=== PATIENT | female | born 1960 | race Caucasian/White ===

== ENCOUNTER 2016-08-31 15:32 | Inpatient (IN) | payer OTHER, MEDICARE ==
[~2016-08-31] VITALS: Ht 170.2 cm; Wt 120.2 kg
[~2016-08-31 15:32] MED LIST: A/B OTIC 54 MG/15 ML OTIC; ACCUNEB 3 ML3 M1 INH; ADVAIR DISKUS1 UNIT INH; ALBUTEROL 3 ML3 ML INH; ALBUTEROL1.25 MG/3 INH/SOL; AMOXIL 875 MG875 MG PO; AUGMENTIN 875 M1 TAB PO; CARISOPRODOL350 MG PO; DUONEB 3 MG/3 ML3 ML INH/SOL; LYRICA150 MG PO; MEDROL DOSEPAK1 PAC PO; MOTRIN 600 MG600 MG PO; NICODERM C21 MG/24 H TOP; OMNICEF300 MG PO; OXYCODONE HCL15 MG PO; OXYCODONE HCL30 MG PO; OXYCODONE HYDRO15 MG PO; PREDNISONE 20MG20 MG PO; PREDNISONE10 MG PO; PREDNISONE20 MG PO; PREDNISONE50 MG PO; PROAIR HFA0.09 MG/Ac INH; ROXICODONE15 MG PO; SINGULAIR10 MG PO; SPIRIVA 18 MCG18 MCG INH; SYMBICORT 80/4.1 PUF INH; TESSALON PERLE100 MG PO; TOPROL XL 100100 MG PO; VENTOLIN H0.09 MG/Ac INH; ZITHROMAX Z-PA250 M1 PO
--- NOTE | 2016-08-31 15:47 | ED DYSPNEA/ASTHMA COMPLAINT ---
History of Present Illness General Chief Complaint: Dyspnea (COPD, CHF, Other) Stated Complaint: DIFF BREATHING, HX OF COPD Source: patient, old records Exam Limitations: no limitations Vital Signs & Intake/Output Vital Signs & Intake/Output Vital Signs Date Time Temp Pulse Resp B/P Pulse O2 O2 Flow FiO2 Ox Delivery Rate 09/01 1153 Nasal 2.0L Cannula 09/01 1116 90 Nasal 2.0L Cannula 09/01 1028 20 97 Room Air 09/01 1005 98.7 88 20 129/79 98 Nasal 2.0L Cannula 09/01 0939 90 163/81 09/01 0855 Nasal 2.0L Cannula 09/01 0824 99.0 95 22 182/74 96 Nasal 2.0L Cannula 09/01 0822 98.0 95 20 182/74 96 Nasal 2.0L Cannula 09/01 0701 92 Nasal 2.0L Cannula 09/01 0356 97.9 76 24 134/70 91 Nasal 2.0L Cannula 09/01 0348 91 Nasal 2.0L Cannula 09/01 0001 99.0 90 24 152/71 91 Nasal 2.0L Cannula 08/31 1936 99.5 98 18 143/69 92 Nasal 2.0L Cannula 08/31 1858 99.2 08/31 1828 91 Nasal 2.0L Cannula 08/31 1655 102.4 105 18 96 Nasal 2.0L Cannula 08/31 1628 93 Nasal Cannula 08/31 1603 92 08/31 1542 100.8 106 24 184/90 92 Room Air ED Intake and Output 09/01 0000 08/31 1200 Intake Total 1370 Output Total Balance 1370 Intake, IV 1250 Intake, Oral 120 Patient 265 lb Weight Allergies Coded Allergies: NO KNOWN ALLERGIES (08/08/15) Reconcile Medications Albuterol Sulfate (Ventolin Hfa) 0.09 MG/Actuation GARCIA 2 PUFF INH Q6H PRN WHEEZING Albuterol Sulfate/Ipratropiu (Duoneb) 3 MG/3 ML NEB 1 Vial INH/KARI 4 TIMES/DAY ASTHMA Carisoprodol 350 MG TABLET 1 TAB PO BID MUSCLE SPASMS (Reported) Fluticasone-Salmeterol (Advair 500-50 Diskus) 1 UNIT UNIT 1 PUF INH BID SOB ( Reported) Metoprolol Succ XL (Toprol Xl 100 MG) 100 MG TAB.ER.24H 1 TAB PO DAILY HEART HEALTH (Reported) Montelukast Sodium (Singulair) 10 MG TABLET 1 TAB PO DAILY COPD (Reported) Nicotine (Nicoderm Cq) 21 MG/24 HR TDM 21 MG TOP DAILY SMOKING CESSATION Oxycodone HCl 30 MG TABLET 1 TAB PO 4XDAILY PAIN (Reported) Triage Note: PT TO TRIAGE WITH C/O SOB, DRY COUGH SINCE LAST NIGHT, +CHEST TIGHTNESS. HX OF COPD, HTN. O2SAT 91-93% ON RA, TEMP 100.8 IN TRIAGE. PT DENIES ABD PAIN,N/V//D,URINARY S/S. Triage Nurses Notes Reviewed? yes HPI: Patient is a 56-year-old female presents complaining of cough, dyspnea, fatigue. Symptoms onset yesterday. Cough with mild green sputum production. Associated wheezing and dyspnea, patient has been using her albuterol inhaler with no improvement. Patient is able to take her medications this morning but did not take her pain medication this afternoon due to significant fatigue and coming to the hospital. Diffuse body pain consistent with her chronic pain. Positive sick contacts at home with upper respiratory type symptoms. Patient reports she did receive an influenza vaccination in 2016. Patient denies chest pain, bowel pain, nausea, vomiting, diarrhea. (YONAS RUBIO) Past History Travel History Traveled to [place] past 21 day No Medical History Any Pertinent Medical History? 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 No (YONAS RUBIO) Review of Systems Review of Systems Constitutional: Reports: malaise, weakness. EENTM: Reports: no symptoms. Respiratory: Reports: see HPI. Cardiovascular: Reports: no symptoms. GI: Reports: no symptoms. Musculoskeletal: Reports: back pain, muscle pain. Skin: Reports: no symptoms. Neurological/Psychological: Reports: no symptoms. Hematologic/Endocrine: Reports: no symptoms. Immunologic/Allergic: Reports: no symptoms. (YONAS RUBIO) Physical Exam Physical Exam General Appearance: alert, awake, obese Head: atraumatic, normal appearance Eyes: Bilateral: normal appearance, PERRL, EOMI. Ears, Nose, Throat: normal pharynx, normal ENT inspection, hearing grossly normal Neck: normal inspection, supple, full range of motion Respiratory: MILD INCREASED RESPIRATORY EFFORT AND TACHYPNEA. dIFFUSE MODERATE INSPIRATORY AND EXPIRATORY WHEEZING. Cardiovascular: MILD TACHYCARDIA, REGULAR RHYTHM NO APPRECIABLE MURMUR Gastrointestinal: soft, non-tender Extremities: normal inspection, normal capillary refill, normal range of motion, no edema Neurologic/Psych: awake, alert, oriented x 3 Skin: intact, normal color, warm/dry Lymphatic: no anterior cervical abiel Core Measures ACS in differential dx? No Severe Sepsis Present: No Septic Shock Present: No (YONAS RUBIO) Progress Differential Diagnosis: asthma, bronchitis, COPD, pneumonia, sepsis Plan of Care: Orders Procedure Date/time Status Heart Healthy Diet 09/01 B Active RT: Reevaluation 09/01 1152 Active RT: Evaluation 09/01 1152 Active URINALYSIS 09/01 1006 Complete Change service to 09/01 0750 Active LIPID PANEL 09/01 06 Complete GLYCOSYLATED HGB 09/01 0600 Active CBC WITHOUT DIFFERENTIAL 09/01 06 Complete BASIC ELECTROLYTES PLUS BUN&CR 09/01 0600 Complete Vital Signs 09/01 0322 Active Teach/Educate 09/01 032 Active Nutritional Intake, Monitor 09/01 032 Active Isolation 09/01 0322 Active Intake & Output 09/01 0322 Active Patient Care Conference 09/01 0322 Active Activity/Ambulation 09/01 0322 Active TRC EVALUATION (GEN) 09/01 UNK Complete THERAPIST ORDERS 09/01 UNK Active Lab Add-on Test 09/01 UNK Active Regular Diet 08/31 D Complete Add-on Test (ER Only) 08/31 2104 Active LACTIC ACID 08/31 1852 Complete Pathway - chart 08/31 1848 Active Pathway - chart 08/31 1846 Active Patient Data 08/31 1846 Active Code Status 08/31 1846 Active Code Status 08/31 1810 Complete RT ED ORDERS 08/31 1752 Active Admit to inpatient 08/31 1716 Active Patient Data 08/31 1703 Active VIRAL CULTURE 08/31 1612 Active THYROID STIMULATING HORMONE 08/31 1603 Complete TROPONIN LEVEL 08/31 1603 Complete FREE T4 08/31 1603 Complete RAPID VIRAL INFLUENZA A 08/31 1552 Complete BLOOD CULTURE 08/31 1552 Active LACTIC ACID 08/31 1552 Complete COMPREHENSIVE METABOLIC PANEL 08/31 1552 Complete CBC WITHOUT DIFFERENTIAL 08/31 1552 Complete House Staff 08/31 UNK Active Lab Add-on Test 08/31 UNK Active VTE Mechanical Prophylaxis 08/31 UNK Active EKG 08/31 UNK Active Current Medications Sig/Cosmo Start time Last Medication Dose Stop Time Status Admin Azithromycin 500 MG DAILY@1700 09/01 1700 AC (Zithromax) Sodium Chloride 250 ML (Normal Saline 0.9%) Albuterol Sulfate 3 ML EVERY 4 HRS/AWAKE 09/01 1600 AC (Proventil) Ipratropium [place] 2.5 ML EVERY 4 HRS/AWAKE 09/01 1600 AC (Atrovent) Guaifenesin 10 ML Q6P PRN 08/31 2345 AC (Robitussin) Acetaminophen 650 MG Q6P PRN 08/31 1900 AC (Tylenol) Laboratory Tests 09/01/16 1006: Urine Color YEL, Urine Clarity HAZY H, Urine pH 7.0, Ur Specific [place] 1.015, Urine Protein NEG, Urine Ketones NEG, Urine Nitrite POS H, Urine Bilirubin NEG, Urine Urobilinogen 0.2, Ur Leukocyte Esterase NEG, Ur Microscopic SEDIMENT EXAMINED, Urine WBC RARE, Ur Epithelial Cells RARE, Urine Hemoglobin NEG, Urine Glucose NEG 09/01/16 0600: Hemoglobin A1c Pending 09/01/16 0600: Anion Gap 15, Estimated GFR > 60, BUN/Creatinine Ratio 18.6, Triglycerides 68, Cholesterol 157, LDL Cholesterol, Calc 97, HDL Cholesterol 47, Cholesterol/HDL Ratio 3, CBC w Diff NO MAN DIFF REQ, RBC 5.12, MCV 85.2, MCH 28.1, RDW 15.1 H, MPV 7.4, Gran % 85.2 H, Lymphocytes % 11.6 L, Monocytes % 2.9, Eosinophils % 0.1, Basophils % 0.2, Absolute Granulocytes 7.2 H, Absolute Lymphocytes 1.0 L, Absolute Monocytes 0.2, Absolute Eosinophils 0, Absolute Basophils 0, PUBS MCHC 33.0 08/31/16 1911: Lactic Acid 2.1 08/31/16 1612: Virus Culture Pending 08/31/16 1603: Anion Gap 14, Estimated GFR > 60, BUN/Creatinine Ratio 17.5, Glucose 109 H, Lactic Acid 2.2 H, Calcium 9.6, Total Bilirubin 0.4, AST 19, ALT 38, Alkaline Phosphatase 104, Troponin I < 0.01, Total Protein 7.3, Albumin 4.1, Globulin 3.2 , Albumin/Globulin Ratio 1.3, TSH 0.580, Free T4 0.93, CBC w Diff NO MAN DIFF REQ, RBC 5.35, MCV 85.2, MCH 28.5, RDW 15.1 H, MPV 7.9, Gran % 80.3 H, Lymphocytes % 13.1 L, Monocytes % 4.9, Eosinophils % 1.4, Basophils % 0.3, Absolute Granulocytes 8.4 H, Absolute Lymphocytes 1.4, Absolute Monocytes 0.5, Absolute Eosinophils 0.1, Absolute Basophils 0, PUBS MCHC 33.5 Microbiology 08/31 1610 BLOOD: Blood Culture - RES 08/31 1603 BLOOD: Blood Culture - RES 1650: Patient reports mild improvement after nebulizer treatment. Lungs reexamined, continues with moderate diffuse inspiratory wheezing. Patient's oxygen saturation level dropped to 88% on room air just with talking with the nursing staff. Patient placed on supplemental oxygen. Discussed results of labs and chest x-ray with patient. Plan for admission. Discussed with Dr. Atkins. Discussed with Dr. Marie for admission (PRIMITIVO CARRINGTON,YONAS) Diagnostic Imaging: Viewed by Me: Radiology Read. Discussed w/RAD: Radiology Read. Radiology Impression: PATIENT: SAW SANDRA PRESENT AGE: 56 PATIENT ACCOUNT NO: [id number] : 61 LOCATION: [facility] ORDERING PHYSICIAN: YONAS CARRINGTON SERVICE DATE: 08/31/16 EXAM TYPE: RAD - XRY-CHEST XRAY, PA AND LATERAL EXAMINATION: XR CHEST CLINICAL INFORMATION: Cough , dyspnea, fever. COMPARISON: Chest done on 08/08/2015. TECHNIQUE: PA and lateral views of the chest were obtained. FINDINGS: Both lung nicholas are symmetrically expanded and appear clear. The cardiomediastinal silhouette is within normal limits. There is no pleural effusion present. The visualized upper abdomen is unremarkable. Mild degenerative changes are noted in the spine. No significant change since prior study. IMPRESSION: No acute cardiopulmonary disease, specifically, no radiographic evidence of pneumonia, unchanged since . DICTATED BY: ANTOINETTE ROWE MD DATE/TIME DICTATED:08/31/161649 SANITATION SUPERINTENDENT:CAITLIN DATE/TIME TRANSCRIBED:08/31/161649 CONFIDENTIAL, DO NOT COPY WITHOUT APPROPRIATE AUTHORIZATION. <Electronically signed in Other Vendor System> SIGNED BY: ANTOINETTE ROWE MD 08/31/161653 Initial ED EKG: none (YONAS RUBIO) Departure Departure Time of Disposition: 1658 Disposition: STILL A PATIENT Condition: Stable Clinical Impression Primary Impression: COPD exacerbation Referrals: STACEY JEAN APRN (PCP/Family) Departure Forms: Customer Survey General Discharge Information Admission Note Spoke With: JANN MARIE MD Documentation of Exam: Documentation of any treatments & extenuating circumstances including Concerns Regarding Discharge (functional status, medication knowledge or non-compliance, living conditions, etc.) that warrant an admission rather than observation: Total respiratory care, IV steroids, supplemental oxygen. Consider pulmonary consultation (YONAS RUBIO) PA/CERTIFIED JUVENILE PROBATION OFFICER Co-Sign Statement Statement: ED Attending supervision documentation- [X] I saw and evaluated the patient. I have also reviewed all the pertinent lab results and diagnostic results. I agree with the findings and the plan of care as documented in the PA's/CERTIFIED JUVENILE PROBATION OFFICER's documentation. [X] I have reviewed the ED Record and agree with the PA's/CERTIFIED JUVENILE PROBATION OFFICER's documentation. [] Additions or exceptions (if any) to the PAs/CERTIFIED JUVENILE PROBATION OFFICER's note and plan are summarized below: [] (NOMAN PIZANO,CELIA) Critical Care Note Critical Care Note Critical Care Time: non-applicable (YONAS RUBIO)
[2016-08-31 16:24] LABS: ABSOLUTE BASOPHIL COUNT 0 /CUMM (0.0-0.2); ABSOLUTE EOSINOPHIL COUNT 0.1 /CUMM (0.0-0.7); ABSOLUTE GRANULOCYTE CT 8.4 /CUMM (1.4-6.5); ABSOLUTE LYMPH COUNT 1.4 /CUMM (1.2-3.4); ABSOLUTE MONOCYTE COUNT 0.5 /CUMM (0.10-0.60); BASOPHIL % 0.3 % (0.0-2.0); EOSINOPHIL % 1.4 % (0-5); GRANULOCYTE % 80.3 % (42.2-75.2); HEMATOCRIT 45.6 % (37-47); MEAN CORPUSCULAR HGB 28.5 PG (27.0-31.0); MEAN CORPUSCULAR HGB CONC 33.5 G/DL (33.0-37.0); MEAN CORPUSCULAR VOLUME 85.2 FL (81.0-99.0); MEAN PLATELET VOLUME 7.9 FL (7.4-10.4); PLATELET COUNT 313 /CUMM (130-400); RBC DISTRIBUTION WIDTH 15.1 % (11.5-14.5); RED BLOOD CELL CT 5.35 /CUMM (4.20-5.40); WHITE BLOOD CELL COUNT 10.5 /CUMM (4.8-10.8)
[2016-08-31] MEDS ORDERED: OXYCODONE HCL30 M1 PO (16:41)
--- NOTE | 2016-08-31 16:54 | RADIOLOGY REPORT ---
EXAMINATION: XR CHEST CLINICAL INFORMATION: Cough, dyspnea, fever. COMPARISON: Chest done on 08/08/2015. TECHNIQUE: PA and lateral views of the chest were obtained. FINDINGS: Both lung nicholas are symmetrically expanded and appear clear. The cardiomediastinal silhouette is within normal limits. There is no pleural effusion present. The visualized upper abdomen is unremarkable. Mild degenerative changes are noted in the spine. No significant change since prior study. IMPRESSION: No acute cardiopulmonary disease, specifically, no radiographic evidence of pneumonia, unchanged since 08/08/2015.
--- NOTE | 2016-08-31 18:50 | History & Physical ---
CED PIZANO,[facility] 08/31/16 1110: General Information and HPI MD Statement: I have seen and personally examined SAW SANDRA and documented this H&P. The patient is a 56 year old F who presented with a patient stated chief complaint of shortness of breath Source of Information: patient Exam Limitations: no limitations History of Present Illness: This is a 56-year-old female with past medical history of hypertension, COPD not on any home oxygen, rheumatoid arthritis is in 2 to ED with chief complaint of shortness of breath and dry cough. As per patient she has been getting short of breath for the past couple of days along with having cough which is productive of scant yellowish sputum. She reports that recently her Víctor son was sick and things that she might have got it from him. She did not report any fever, chills. She denies any nausea, vomiting, abdominal pain, changes in bowel movements, any urinary symptoms, recent travels. She reports that she has been a smoker for the past 40 years initially was smoking a couple of packs a day but now has lower down to couple of cigarettes now and then ever since she was diagnosed with COPD. She gets roughly 1 episode of bronchitis per year, has not seen any behavioral health therapist as of yet but thinks that it's time to see one. She was at home, continue her daily chores by herself without any difficulty. Allergies/Medications Allergies: Coded Allergies: NO KNOWN ALLERGIES (08/08/15) Home Med list Albuterol Sulfate (Ventolin Hfa) 0.09 MG/Actuation GARCIA 2 PUFF INH Q6H PRN WHEEZING Albuterol Sulfate/Ipratropiu (Duoneb) 3 MG/3 ML NEB 1 Vial INH/KARI 4 TIMES/DAY ASTHMA Carisoprodol 350 MG TABLET 1 TAB PO BID MUSCLE SPASMS (Reported) Fluticasone-Salmeterol (Advair 500-50 Diskus) 1 UNIT UNIT 1 PUF INH BID SOB ( Reported) Metoprolol Succ XL (Toprol Xl 100 MG) 100 MG TAB.ER.24H 1 TAB PO DAILY HEART HEALTH (Reported) Montelukast Sodium (Singulair) 10 MG TABLET 1 TAB PO DAILY COPD (Reported) Nicotine (Nicoderm Cq) 21 MG/24 HR TDM 21 MG TOP DAILY SMOKING CESSATION Oxycodone HCl 30 MG TABLET 1 TAB PO 4XDAILY PAIN (Reported) Compliance With Home Meds: UNKNOWN Past History Travel History Traveled to [place] past 21 day No Medical History Neurological: NONE EENT: NONE Cardiovascular: hypertension Respiratory: bronchitis, COPD, pneumonia Gastrointestinal: NONE Hepatic: NONE Renal: NONE Musculoskeletal: rheumatoid arthritis, CHRONIC BACK PAIN Psychiatric: NONE Endocrine: NONE Blood Disorders: NONE Cancer(s): NONE 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 Home Who Do You Live With? self Services at Home: None Primary Language: Bolivian Smoking Status: Current Some Day Smoker ETOH Use: denies use Illicit Drug Use: denies illicit drug use Functional Ability ADLs Independent: dressing, eating, toileting, bathing. Ambulation: independent IADLs Independent: shopping, housework, finances, food prep, telephone, transportation , medication admin. Review of Systems Review of Systems Constitutional: Reports: see HPI. Cardiovascular: Denies: chest pain, palpitations. Respiratory: Reports: see HPI, cough, short of breath, sputum production. GI: Denies: abdominal pain, constipation, diarrhea, nausea, vomiting. Genitourinary: Denies: dysuria, frequency. Exam & Diagnostic Data Last 24 Hrs of Vital Signs/I&O Vital Signs Date Time Temp Pulse Resp B/P Pulse O2 O2 Flow FiO2 Ox Delivery Rate 08/31 1936 99.5 98 18 143/69 92 Nasal 2.0L Cannula 08/31 1858 99.2 08/31 1828 91 Nasal 2.0L Cannula 08/31 1655 102.4 105 18 96 Nasal 2.0L Cannula 08/31 1628 93 Nasal Cannula 08/31 1603 92 08/31 1542 100.8 106 24 184/90 92 Room Air Intake & Output 08/31 1600 08/31 0800 08/31 0000 Intake Total Output Total Balance Patient 120.202 kg Weight Physical Exam General Appearance Alert, Oriented X3, Cooperative, No Acute Distress Cardiovascular Regular Rate, Normal S1, Normal S2, No Murmurs Lungs b/lateral wheeze in all 3 lung zones Abdomen Normal Bowel Sounds, Soft, No Tenderness Extremities No Clubbing, No Cyanosis, No Edema Last 24 Hrs of Labs/[place]: Laboratory Tests 08/31/16 1911: Lactic Acid 2.1 08/31/16 1603: Anion Gap 14, Estimated GFR > 60, BUN/Creatinine Ratio 17.5, Glucose 109 H, Lactic Acid 2.2 H, Calcium 9.6, Total Bilirubin 0.4, AST 19, ALT 38, Alkaline Phosphatase 104, Troponin I Pending, Total Protein 7.3, Albumin 4.1, Globulin 3.2, Albumin/Globulin Ratio 1.3, TSH Pending, Free T4 Pending, CBC w Diff NO MAN DIFF REQ, RBC 5.35, MCV 85.2, MCH 28.5, RDW 15.1 H, MPV 7.9, Gran % 80.3 H, Lymphocytes % 13.1 L, Monocytes % 4.9, Eosinophils % 1.4, Basophils % 0.3, Absolute Granulocytes 8.4 H, Absolute Lymphocytes 1.4, Absolute Monocytes 0.5, Absolute Eosinophils 0.1, Absolute Basophils 0, PUBS MCHC 33.5 Microbiology 08/31 1610 BLOOD: Blood Culture - RECD 08/31 160 BLOOD: Blood Culture - RECD Assessment/Plan Assessment: This is a 56-year-old female with past medical history of hypertension, COPD not on any home oxygen, rheumatoid arthritis is in 2 to ED with chief complaint of shortness of breath and dry cough. Is upon presentation temperature 100.8, pulse 106, respiratory 24, blood pressure 184/90, satting in low 90s on 2 L nasal cannula oxygen. Worsening labs H&H 15.3 and 45.6, creatinine 0.8, lactic acid 2.2 Chest x-ray showed no evidence of acute pulmonary disease. We'll admit the patient on [facility] floor and monitor for the following conditions : Acute exacerbation of COPD: Oxygen supplementation as needed to keep saturation above 90. TRC/nebs as needed Started on IV Solu-Medrol 40 mg every 8 Started on azithromycin 250 mg daily Nicotine patch for tobacco dependence. CT chest chest showed evidence of incidental finding of thyroid nodule. We will check TSH and free T4 and have patient follow-up with primary care physician upon discharge for further evaluation of the thyroid nodule. History of hypertension: To continue home dose of metoprolol 100 mg daily Diet heart healthy. DVT prophylaxis: Lovenox Patient is full code As Ranked By This Provider Problem List: 1. COPD exacerbation 2. HTN (hypertension) 3. Rheumatoid arthritis Core Measures/Miscellaneous Acute Coronary Syndrome ACS Diagnosis: No Cerebrovascular Accident CVA/TIA Diagnosis: No Congestive Heart Failure CHF Diagnosis: No Venous Thromboembolism VTE Risk Factors: Acute medical illness, Age > 40 VTE Prophylaxis Ordered Inpt: Pharm- Lovenox No Mech VTE prophylaxis d/t: No contraindications No VTE Pharm Prophylaxis d/t: No contraindications VTE Diagnosis: No VTE Type: NONE VTE Confirmed by (Test): NONE Severe Sepsis Severe Sepsis Present: No Septic Shock Septic Shock Present: No Miscellaneous Documentation Attending Case Discussed With: CED PIZANO,FORTE Primary Care Physician: STACEY JEAN APRN Patient sees these Specialists . Level of Patient Care: General Medicine ANDREY PIZANO, [facility] 08/31/16 2015: Attending MD Review Statement Attending Statement Attending MD Statement: examined this patient, discuss w/resident/PA/MARKETING TECHNOLOGIST, agreed w/resident/PA/MARKETING TECHNOLOGIST Attending Assessment/Plan: 56 yo morbidly obese F active smoker with h/o HTN, possible COPD/asthma (non- steroid or O2 dependent) last admitted to [facility] Jul 2015 for an exacerbation, but did not follow up with Pulm (Dr. Carter was suggested), pw exertional dyspnea , cough (very minimal green phlegm) and wheezing that started 1 day prior. Sick contacts: grandchildren. Received flu vaccine last year. Reports h/o norovirus infection 2 weeks ago that seems to have resolved. While in ER, O2 sats were 88-90% on RA after nebs --> 92% on 2L. Reduced air entry with expiratory wheezes++. Labs: no leukocytosis, lactic acid 2.2, glucose 109. CXR: neg. CT chest: airways disease, subsegmental atelectasis, no pneumonia , thyroid nodule. 1. Hypoxia secondary to COPD exacerbation. TRC nebs, keep O2 sats > 92%, IV steroids, IV azithro for 5 days. Mucinex BID. Gentle hydration, trend lactic acid. No evidence of pneumonia on CT. Rapid flu neg. Smoking cessation counseling done, provide nicotine patch. Restart Advair on discharge. Also, will need to give referral to follow up with Dr. Carter on discharge, patient agreeable for the same. 2. Coronary disease. Patient underwent nuclear stress test (2011) which showed EF > 70% with small area of reversible ischemia in the anteroseptal wall with apical thinning. Will obtain an EKG and check troponin. She has not followed with Cardiology due to insurance issues. Please provide referral to Dr. Gelacio Morfin on discharge. She should be on daily baby aspirin. 3. CT evidence of incidental thyroid nodule. Will check TSH and free T4. Follow up with PCP for outpatient thyroid ultrasound. 4. Continue metoprolol for HTN. 5. Continue oxycodone for chronic pain 2/2 rheumatoid arthritis. 6. Elevated random glucose. Please check HbA1c and lipid panel. DVT ppx Lovenox. Full code. EKG: Sinus rhythm @ 94/min, QTc 501, no acute changes. Troponin negative. LEE PIZANO,JANUARY 08/31/162020: Resident Review Statement Resident Statement: examined this patient, discussed with record label internship, agreed with record label internship Other Findings: Is is a 56-year-old female with a past medical history of hypertension, COPD not on home oxygen, pneumonia, RA who presented to the ED with shortness of breath, dry cough since last night on admission to the ED patient was found to be saturating at 88-90% on room air and increased to 92% after nebulization and 2 L of oxygen. She does report sick contacts at home (grandchildren are sick). She does not report any fevers, chills, nausea, vomiting, abdominal pain, trouble with urinating or bowel movements. Problem list: * COPD exacerbation * Hypertension * Rheumatoid arthritis currently on opioids Plan: * Admit to general medicine for COPD exacerbation * IV Solu-Medrol 40 every 8 and azithromycin * As patient a mildly elevated lactate and is febrile, check CAT scan of chest without contrast to rule out evolving pneumonia * Continue other home medications including Carisoprodol and Roxicodone. Please confirm Roxicodone dosage from her crayon painter at [place] (Dr. Browne) * Pain pathway: Tylenol when necessary * DVT prophylaxis: Subcutaneous Lovenox * CODE STATUS: Full code
--- NOTE | 2016-08-31 19:58 | CT SCAN REPORT ---
EXAMINATION: CT CHEST WITHOUT CONTRAST CLINICAL INFORMATION: Cough and fever. Negative plain radiography. COMPARISON: Plain films 08/31/2016 and priors. TECHNIQUE: Multidetector volumetric CT imaging of the chest was done. Axial MIP volume rendering provided. Sagittal and coronal reformatted images were obtained. DLP: 1325.56 mGy-cm. FINDINGS: STRUCTURAL ANALYST: No lobar pneumonia. LUNGS: A linear bandlike parenchymal opacity is noted in the anterior basal segment of the right lower lobe (series 3 image 36/61). This has the appearance of subsegmental atelectasis rather than pneumonia. Coronal reformats also demonstrate platelike atelectasis at both lung bases (coronal series 601 image 90/138). There is diffuse mild bronchial wall thickening. No overt bronchiectasis. No endobronchial filling defects. MEDIASTINUM: Moderate coronary disease and mild atherosclerotic peripheral vascular disease. An indeterminant 17 mm nodule is noted in the thyroid isthmus (series 2 image 6/61). Further evaluation of this hypodense lesion with thyroid ultrasound. No mediastinal adenopathy. The heart and great vessels are grossly normal. PLEURA: There is no pleural effusion. No pleural mass or thickening. AXILLA: No gross adenopathy on limited evaluation. UPPER ABDOMEN: Tiny hiatal hernia. OSSEOUS STRUCTURES: Moderate degenerative disc disease and spondylosis throughout the dorsal spine. No acute abnormality. IMPRESSION: 1. No focal pneumonia. 2. Airways disease. 3. Linear bandlike opacities at both lung bases with the appearance of subsegmental/platelike atelectasis. 4. A tiny hiatal hernia. 5. Thyroid nodule. Evaluate with thyroid ultrasound.
--- NOTE | 2016-08-31 20:16 | Admission Certification ---
Admission Certification Certification Statement - As attending physician, I certify that at the time of - admission, based on clinical presentation, severity of - symptoms, need for further diagnostic testing and - therapeutic interventions, and risk of adverse outcomes - without in-hospital treatment, in my clinical assessment, - this patient requires an acute hospital stay for a minimum - of two nights or longer. I have also considered psychsocial - factors such as support system, advanced age, financial - issues, cognitive issues, and failed out-patient treatments, - past re-admission history, safety of patient, and lack of - compliance as applicable. Specific rationale supporting this admission is: Hypoxia, COPD exacerbation.
[2016-09-01 03:56] VITALS: BP 134/70
[2016-09-01 06:08] LABS: ABSOLUTE BASOPHIL COUNT 0 /CUMM (0.0-0.2); ABSOLUTE EOSINOPHIL COUNT 0 /CUMM (0.0-0.7); ABSOLUTE GRANULOCYTE CT 7.2 /CUMM (1.4-6.5); ABSOLUTE MONOCYTE COUNT 0.2 /CUMM (0.10-0.60); BASOPHIL % 0.2 % (0.0-2.0); EOSINOPHIL % 0.1 % (0-5); HEMATOCRIT 43.6 % (37-47); MEAN CORPUSCULAR HGB 28.1 PG (27.0-31.0); MEAN CORPUSCULAR VOLUME 85.2 FL (81.0-99.0); MEAN PLATELET VOLUME 7.4 FL (7.4-10.4); PLATELET COUNT 300 /CUMM (130-400); RBC DISTRIBUTION WIDTH 15.1 % (11.5-14.5); RED BLOOD CELL CT 5.12 /CUMM (4.20-5.40); WHITE BLOOD CELL COUNT 8.4 /CUMM (4.8-10.8)
[2016-09-01 06:12] LABS: GRANULOCYTE % 85.2 % (42.2-75.2)
--- NOTE | 2016-09-01 07:30 | PN- Housestaff ---
CED PIZANO,[facility] 09/01/16 0729: Subjective Follow-up For: COPD exacerbation Subjective: pt seen and examined this am. she was lying comfortably in bed in no acute distress. She reported feeling better since yesterday, No SOB or chest pain. afebrile, vitals wnl. Review of Systems Constitutional: Reports: see HPI. Objective Last 24 Hrs of Vital Signs/I&O Vital Signs Date Time Temp Pulse Resp B/P Pulse O2 O2 Flow FiO2 Ox Delivery Rate 09/01 1645 90 Room Air 09/01 1429 98.4 80 20 128/60 97 Room Air 09/01 1153 Nasal 2.0L Cannula 09/01 1116 90 Nasal 2.0L Cannula 09/01 1028 20 97 Room Air 09/01 1005 98.7 88 20 129/79 98 Nasal 2.0L Cannula 09/01 0939 90 163/81 09/01 0855 Nasal 2.0L Cannula 09/01 0824 99.0 95 22 182/74 96 Nasal 2.0L Cannula 09/01 0822 98.0 95 20 182/74 96 Nasal 2.0L Cannula 09/01 0701 92 Nasal 2.0L Cannula 09/01 0356 97.9 76 24 134/70 91 Nasal 2.0L Cannula 09/01 0348 91 Nasal 2.0L Cannula 09/01 0001 99.0 90 24 152/71 91 Nasal 2.0L Cannula 08/31 1936 99.5 98 18 143/69 92 Nasal 2.0L Cannula 08/31 1858 99.2 08/31 1828 91 Nasal 2.0L Cannula Intake & Output 09/01 1600 09/01 0800 09/01 0000 Intake Total 1940 0 1370 Output Total 200 0 Balance 1740 0 1370 Intake, IV 800 1250 Intake, Oral 1140 0 120 Output, Urine 200 0 Patient 120.202 kg Weight Physical Exam General Appearance: Alert, Oriented X3, Cooperative, No Acute Distress Cardiovascular: Regular Rate, Normal S1, Normal S2, No Murmurs Lungs: Normal Air Movement, mild exp wheeze Abdomen: Normal Bowel Sounds, Soft, No Tenderness Extremities: No Clubbing, No Cyanosis, No Edema Current Medications: Current Medications Sig/Cosmo Start time Last Medication Dose Route Stop Time Status Admin Acetaminophen 650 MG Q6P PRN 08/31 1900 AC PO Albuterol Sulfate 3 ML EVERY 4 HRS/AWAKE 09/01 1600 AC 09/01 INH 1645 Albuterol Sulfate 3 ML Q4H PRN 09/01 0700 AC 09/01 INH 1116 Albuterol Sulfate 3 ML ONCE ONE 08/31 1800 DC 08/31 INH 08/31 1801 1828 Aspirin 81 MG DAILY 09/01 1000 AC 09/01 PO 0939 Azithromycin 500 MG DAILY@1700 09/01 1700 AC Sodium Chloride 250 ML IV Azithromycin 500 MG ONCE ONE 08/31 1700 DC 08/31 Sodium Chloride 250 ML IV 08/31 1759 1712 Carisoprodol 0 .STK-MED ONE 09/01 0949 DC PO Carisoprodol 0 .STK-MED ONE 08/31 2251 DC PO Carisoprodol 350 MG BID 08/31 2200 AC 09/01 PO 0951 Enoxaparin Sodium 40 MG DAILY 09/01 1000 AC 09/01 SC 0939 Guaifenesin 600 MG Q12 08/31 2359 AC 09/01 PO 0939 Guaifenesin 10 ML Q6P PRN 08/31 2345 AC PO Ipratropium [place] 2.5 ML EVERY 4 HRS/AWAKE 09/01 1600 AC 09/01 INH 1645 Ipratropium [place] 2.5 ML ONCE ONE 08/31 1800 DC 08/31 INH 08/31 1801 1827 Methylprednisolone 40 MG Q8 09/01 2200 AC IV Methylprednisolone 0 .STK-MED ONE 09/01 0557 DC .ROUTE Methylprednisolone 40 MG Q6 08/31 2359 DC 09/01 IV 1212 Methylprednisolone 0 .STK-MED ONE 08/31 2343 DC .ROUTE Metoprolol Succinate 100 MG DAILY 09/01 1000 AC 09/01 PO 0939 Montelukast Sodium 10 MG DAILY 09/01 1000 AC 09/01 PO 0939 Nicotine 21 MG DAILY 09/01 1000 AC 09/01 TOP 0942 Oxycodone HCl 0 .STK-MED ONE 08/31 2251 DC PO Oxycodone HCl 30 MG 4 TIMES/DAY 08/31 2200 AC 09/01 PO 1427 Patient Medication 1 UNIT ONE NR 08/31 1915 DC Teaching ED 08/31 2000 Patient Medication 1 UNIT ONE NR 08/31 1900 DC Teaching ED 08/31 1930 Sodium Chloride 1,000 ML Q10H 08/31 2045 DC 08/31 IV 09/01 0544 210 Sodium Chloride 1,000 ML BOLUS ONE 08/31 1645 DC 08/31 IV 08/31 1744 1647 Last 24 Hrs of Lab/[place] Results Last 24 Hrs of Labs/Mics: Laboratory Tests 09/01/16 1006: Urine Color YEL, Urine Clarity HAZY H, Urine pH 7.0, Ur Specific [place] 1.015, Urine Protein NEG, Urine Ketones NEG, Urine Nitrite POS H, Urine Bilirubin NEG, Urine Urobilinogen 0.2, Ur Leukocyte Esterase NEG, Ur Microscopic SEDIMENT EXAMINED, Urine WBC RARE, Ur Epithelial Cells RARE, Urine Hemoglobin NEG, Urine Glucose NEG 09/01/16 0600: Hemoglobin A1c Pending 09/01/16 0600: Anion Gap 15, Estimated GFR > 60, BUN/Creatinine Ratio 18.6, Triglycerides 68, Cholesterol 157, LDL Cholesterol, Calc 97, HDL Cholesterol 47, Cholesterol/HDL Ratio 3, CBC w Diff NO MAN DIFF REQ, RBC 5.12, MCV 85.2, MCH 28.1, RDW 15.1 H, MPV 7.4, Gran % 85.2 H, Lymphocytes % 11.6 L, Monocytes % 2.9, Eosinophils % 0.1, Basophils % 0.2, Absolute Granulocytes 7.2 H, Absolute Lymphocytes 1.0 L, Absolute Monocytes 0.2, Absolute Eosinophils 0, Absolute Basophils 0, PUBS MCHC 33.0 08/31/16 1911: Lactic Acid 2.1 Assessment/Plan Assessment: This is a 56-year-old female with past medical history of hypertension, COPD not on any home oxygen, rheumatoid arthritis is in 2 to ED with chief complaint of shortness of breath and dry cough. Is upon presentation temperature 100.8, pulse 106, respiratory 24, blood pressure 184/90, satting in low 90s on 2 L nasal cannula oxygen. Worsening labs H&H 15.3 and 45.6, creatinine 0.8, lactic acid 2.2 Chest x-ray showed no evidence of acute pulmonary disease. We'll admit the patient on [facility] floor and monitor for the following conditions : Acute exacerbation of COPD: Oxygen supplementation as needed to keep saturation above 90. TRC/nebs as needed Started on IV Solu-Medrol 40 mg Q8 Started on azithromycin 250 mg daily Nicotine patch for tobacco dependence. CT chest chest showed evidence of incidental finding of thyroid nodule. We will check TSH and free T4 and have patient follow-up with primary care physician upon discharge for further evaluation of the thyroid nodule. History of hypertension: To continue home dose of metoprolol 100 mg daily Diet heart healthy. DVT prophylaxis: Lovenox Patient is full code Problem List: 1. COPD exacerbation Pain Ratin Pain Location: none Pain Goal: Remain pain free Pain Plan: mild pp Tomorrow's Labs & Rationales: none AHMET GRIER MD 09/01/16 1154: Attending MD Review Statement Attending Statement Attending MD Statement: examined this patient, discuss w/resident/PA/TANK TRUCK OPERATOR, agreed w/resident/PA/TANK TRUCK OPERATOR, reviewed EMR data (avail), discussed with nursing, amended to note Attending Assessment/Plan: Patient seen and examined. She is resting comfortably and not in acute distress. She reports feeling better since admission yesterday. At present denies any chest pain or shortness of breath. Reports mild productive cough. Patient reports that she has not followed up with pulmonary follow-up since I last to [facility]. She also admits that she did not follow-up with the cardiology service since discharge. She reports experiencing squeezing chest pain while at rest about once a week. She denies any exertional chest pain. She denies any radiation of the pain. She has been in her usual state of health until she developed high respiratory symptoms a few days ago after exposure to sick grandkids. On examination she shows no evidence of volume overload. She has adequate entry bilaterally with mild expiratory rhonchi. She has trace peripheral edema. Problems: 1. COPD exacerbation 2. Abnormal stress test; with complaints of resting chest pain once a week. 3. Thyroid nodules. 4. Hypertension Plan: -Continue current bronchodilator regimen. -Taper down Solu-Medrol to 40 mg IV every 8 hours. -Taper off oxygen supplementation as tolerated. -Pulmonary consultation. Records shows that she has been referred to Dr. Carter in the past. -Although her complaint of chest pain at rest his atypical and she has a nonischemic EKG at present with negative troponin, in view of her history of abnormal stress test(2011) recommend cardiology consultation prior to discharge.
[2016-09-01 08:24] VITALS: BP 182/74
--- NOTE | 2016-09-01 14:14 | PN- Student ---
Subjective Subjective: This a 56 yo morbidly obese F, active smoker w/ h/o HTN and COPD last admitted to [place] Jul 2015 for COPD exacerbation but lost to F/U. Presented to ED 08/31 w / exterional dyspnea, cough productive of minimal green phlegm and wgeezing for one day. Sick contacts include one grandchild. Hx of norovirus infection 2 wks prior to admission that has since resolved. Has recieved flu vaccine for this year. Today, she is resting comfortably and not in acute distress. She reports feeling better since admission yesterday. No chest pain or SOB. She reports experiencing squeezing chest pain at 7/10 while at rest about once a week w/o radiation, but has not felt chest pain since coming to hospital. Objective Objective: At ED: O2 sat was 88-90% on RA after nebulizer, improved to 92% on 2L O2 per NC. On PE, found to have reduced air entry w/ expiratory wheeze. Normal WBC count, lactic acid to 2.2 + elevated random glucose at 109. CXR found subsegmental atelectasis, chronic airway disease and no evidence of pneumonia. Incidental thyroid nodule also reported. On PE today: Vital Signs Date Time Temp Pulse Resp B/P Pulse O2 O2 Flow FiO2 Ox Delivery Rate 09/01 1153 Nasal 2.0L Cannula 09/01 1116 90 Nasal 2.0L Cannula 09/01 1028 20 97 Room Air 09/01 1005 98.7 88 20 129/79 98 Nasal 2.0L Cannula 09/01 0939 90 163/81 09/01 0855 Nasal 2.0L Cannula 09/01 0824 99.0 95 22 182/74 96 Nasal 2.0L Cannula 09/01 0822 98.0 95 20 182/74 96 Nasal 2.0L Cannula 09/01 0701 92 Nasal 2.0L Cannula 09/01 0356 97.9 76 24 134/70 91 Nasal 2.0L Cannula 09/01 0348 91 Nasal 2.0L Cannula 09/01 0001 99.0 90 24 152/71 91 Nasal 2.0L Cannula 08/31 1936 99.5 98 18 143/69 92 Nasal 2.0L Cannula 08/31 1858 99.2 08/31 1828 91 Nasal 2.0L Cannula 08/31 1655 102.4 105 18 96 Nasal 2.0L Cannula 08/31 1628 93 Nasal Cannula 08/31 1603 92 08/31 1542 100.8 106 24 184/90 92 Room Air Intake & Output 09/01 1600 09/01 0800 09/01 0000 Intake Total 900 0 1370 Output Total 200 0 Balance 700 0 1370 Intake, IV 1250 Intake, Oral 900 0 120 Output, Urine 200 0 Patient 265 lb Weight Gen - Cooperative w/ exam. NAD Cardiac - RRR, S1S2, no m/r/g Lungs - Adequate air entry BL. Mild expiratory rhonchi Ext - No edema noted Laboratory Tests 09/01/16 1006: Urine Color YEL, Urine Clarity HAZY H, Urine pH 7.0, Ur Specific [place] 1.015, Urine Protein NEG, Urine Ketones NEG, Urine Nitrite POS H, Urine Bilirubin NEG, Urine Urobilinogen 0.2, Ur Leukocyte Esterase NEG, Ur Microscopic SEDIMENT EXAMINED, Urine WBC RARE, Ur Epithelial Cells RARE, Urine Hemoglobin NEG, Urine Glucose NEG 09/01/16 0600: Hemoglobin A1c Pending 09/01/16 0600: Anion Gap 15, Estimated GFR > 60, BUN/Creatinine Ratio 18.6, Triglycerides 68, Cholesterol 157, LDL Cholesterol, Calc 97, HDL Cholesterol 47, Cholesterol/HDL Ratio 3, CBC w Diff NO MAN DIFF REQ, RBC 5.12, MCV 85.2, MCH 28.1, RDW 15.1 H, MPV 7.4, Gran % 85.2 H, Lymphocytes % 11.6 L, Monocytes % 2.9, Eosinophils % 0.1, Basophils % 0.2, Absolute Granulocytes 7.2 H, Absolute Lymphocytes 1.0 L, Absolute Monocytes 0.2, Absolute Eosinophils 0, Absolute Basophils 0, PUBS MCHC 33.0 08/31/16 1911: Lactic Acid 2.1 08/31/16 1612: Virus Culture Pending 08/31/16 1603: Anion Gap 14, Estimated GFR > 60, BUN/Creatinine Ratio 17.5, Glucose 109 H, Lactic Acid 2.2 H, Calcium 9.6, Total Bilirubin 0.4, AST 19, ALT 38, Alkaline Phosphatase 104, Troponin I < 0.01, Total Protein 7.3, Albumin 4.1, Globulin 3.2 , Albumin/Globulin Ratio 1.3, TSH 0.580, Free T4 0.93, CBC w Diff NO MAN DIFF REQ, RBC 5.35, MCV 85.2, MCH 28.5, RDW 15.1 H, MPV 7.9, Gran % 80.3 H, Lymphocytes % 13.1 L, Monocytes % 4.9, Eosinophils % 1.4, Basophils % 0.3, Absolute Granulocytes 8.4 H, Absolute Lymphocytes 1.4, Absolute Monocytes 0.5, Absolute Eosinophils 0.1, Absolute Basophils 0, PUBS MCHC 33.5 Assessment/Plan Assessment: This is a 56 yo obese F active smoker w/ hx of HTN and COPD admitted w/ exertional dyspnea, productive cough (minimal green sputum) and wheezing c/w COPD exacerbation. Active problems include (1) Hypoxia s/t COPD exacerbation (2) Coronary disease (3) Incidental thyroid nodule per CT (4) HTN (5) Chronic pain ( 6) Elevated random glucose to 109 Plan: 1) Hypoxia s/t COPD exacerbation -Contine nebulizer tx, monitor O2 sats -IV steroids -IV azithromycin X 5 days for prophylaxis -Smoking cessation counseling -Hydration w/ NS 50mL/hr -Monitor Lac acid -F/U pulm as outpatient w/ Dr. Carter 2) Coronary dx -Abnormal stress test 2011 found EF<70% w/ small are of reversible ischemia in anteroseptal wall but lost to f/u -EKG showed sinus rythym + negative troponin -F/U cardio as outpatient w/ Dr. Morfin 3) Incidental thyroid nodule per CT -TSH + freeT4 -F/U outpatient for thyroid US 4) HTN -Continue metoprolol 5) Chronic pain s/t RA -Continue oxycodon for pain mgmt 6) Elevated random glucose -HbA1c -Lipid panel WNL -DVT prophylaxis -F/U case mgmt as pt has been lost to f/u previously and will require several outpatient f/u appointments
--- NOTE | 2016-09-01 17:50 | Event Note ---
Event Note Event Note: Subjective: I was called by the nursing staff after the patient complained of redness and itching at the site of injection. Objective: Patient was sitting comfortably on her bed, not in any acute distress, vitals with temperature 98.2, pulse 80, respiration 20, blood pressure 159/72, pulse oximetry 92% with additional oxygen via nasal cannula at 2 L/m. On physical examination, she did not have any redness or swelling or warmth over right antecubital fossa where the IV catheter is placed, and azithromycin was given through it. The patient has occasional wheezes bilaterally at the base of her lung feels. She denies any chest pain, shortness of breath more than usual, any swelling of her tongue, swelling of her lips, rashes or itching anywhere on the skin. Assessment and plan: 56 yo F with pmh of COPD and hypertension, currently being treated for acute exacerbation of COPD with IV azithromycin and other drugs, has a possible allergy reaction to azithromycin. -Earlier, my resident Dr. Cervantes had seen the patient and thinking in the line of allergic, had discontinued azithromycin. -Choice of antibiotic effort to the morning team says the patient is off azithromycin right now -Resident informed all along. Message to be passed on to the AM team via night staff. Thank you.
[2016-09-01 23:01] VITALS: BP 130/76
[2016-09-02 07:08] VITALS: BP 120/70
--- NOTE | 2016-09-02 07:35 | PN- Student ---
Subjective Subjective: This is a 56 yo obese F active smoker w/ hx of HTN and COPD admitted w/ exertional dyspnea, productive cough (minimal green sputum) and wheezing c/w COPD exacerbation. One event overnight w/ possible allergic rxn to azithromycin. Pt became swollen, erythematous and pruiritic in L arm at site of administration of IV azithromycin as drug was given. Drug was stopped immediately and the rxn resolved in several minutes. So sign of rxn this morning. Today, she is pleasant and cooperative, sitting up in bed and reporting much improved breathing. She states that she reached O2 sat 97% on RA earlier, although she is currently still on 2L O2 by NC. She continues to tolerate heart healthy diet and has been passing flatus, BM last night. She is able to ambulate comfortable w/o shortness of breath. Pt was counseled on importance of establishing PCP and making f/u appointments w/ cardio and pulm for f/u on COPD, HTN, borderline DM, thyroid nodule and abnormal stress echo in 2011, after which she was lost to f/u. She also states that she is willing and determined to quit smoking. Objective Objective: Vital Signs Date Time Temp Pulse Resp B/P Pulse O2 O2 Flow FiO2 Ox Delivery Rate 09/02 0708 97.6 69 20 120/70 97 Nasal Cannula 09/02 0000 Nasal 2.0L Cannula 09/01 2301 98.0 74 20 130/76 94 Nasal 2.0L Cannula 09/01 1801 98.2 80 20 159/72 92 Nasal 2.0L Cannula 09/01 1645 90 Room Air 09/01 1429 98.4 80 20 128/60 97 Room Air 09/01 1153 Nasal 2.0L Cannula 09/01 1116 90 Nasal 2.0L Cannula 09/01 1028 20 97 Room Air 09/01 1005 98.7 88 20 129/79 98 Nasal 2.0L Cannula 09/01 0939 90 163/81 09/01 0855 Nasal 2.0L Cannula 09/01 0824 99.0 95 22 182/74 96 Nasal 2.0L Cannula 09/01 0822 98.0 95 20 182/74 96 Nasal 2.0L Cannula Intake & Output 09/02 0800 09/02 0000 09/01 1600 Intake Total 100 1940 Output Total 200 Balance 100 1740 Intake, IV 800 Intake, Oral 100 1140 Output, Urine 200 On PE: Gen - Cooperative, comfortable, NAD Cardiac - RRR, S1S2, no m/r/g Lungs - Adequate air entry BL w/ mild expiratory rhonchi BL Ext - No peripheal edema noted. Distal pulses palpable Laboratory Tests 09/01/16 1006: Urine Color YEL, Urine Clarity HAZY H, Urine pH 7.0, Ur Specific [place] 1.015, Urine Protein NEG, Urine Ketones NEG, Urine Nitrite POS H, Urine Bilirubin NEG, Urine Urobilinogen 0.2, Ur Leukocyte Esterase NEG, Ur Microscopic SEDIMENT EXAMINED, Urine WBC RARE, Ur Epithelial Cells RARE, Urine Hemoglobin NEG, Urine Glucose NEG 09/01/16 0600: Hemoglobin A1c 6.7 H 09/01/16 0600: Anion Gap 15, Estimated GFR > 60, BUN/Creatinine Ratio 18.6, Triglycerides 68, Cholesterol 157, LDL Cholesterol, Calc 97, HDL Cholesterol 47, Cholesterol/HDL Ratio 3, CBC w Diff NO MAN DIFF REQ, RBC 5.12, MCV 85.2, MCH 28.1, RDW 15.1 H, MPV 7.4, Gran % 85.2 H, Lymphocytes % 11.6 L, Monocytes % 2.9, Eosinophils % 0.1, Basophils % 0.2, Absolute Granulocytes 7.2 H, Absolute Lymphocytes 1.0 L, Absolute Monocytes 0.2, Absolute Eosinophils 0, Absolute Basophils 0, PUBS MCHC 33.0 08/31/16 1911: Lactic Acid 2.1 08/31/16 1612: Virus Culture Pending 08/31/16 1603: Anion Gap 14, Estimated GFR > 60, BUN/Creatinine Ratio 17.5, Glucose 109 H, Lactic Acid 2.2 H, Calcium 9.6, Total Bilirubin 0.4, AST 19, ALT 38, Alkaline Phosphatase 104, Troponin I < 0.01, Total Protein 7.3, Albumin 4.1, Globulin 3.2 , Albumin/Globulin Ratio 1.3, TSH 0.580, Free T4 0.93, CBC w Diff NO MAN DIFF REQ, RBC 5.35, MCV 85.2, MCH 28.5, RDW 15.1 H, MPV 7.9, Gran % 80.3 H, Lymphocytes % 13.1 L, Monocytes % 4.9, Eosinophils % 1.4, Basophils % 0.3, Absolute Granulocytes 8.4 H, Absolute Lymphocytes 1.4, Absolute Monocytes 0.5, Absolute Eosinophils 0.1, Absolute Basophils 0, PUBS MCHC 33.5 Current Medications Sig/Cosmo Start time Last Medication Dose Stop Time Status Admin Acetaminophen 650 MG Q6P PRN 08/31 1899 AC (Tylenol) Guaifenesin 10 ML Q6P PRN 08/31 2345 AC (Robitussin) Current Medications Sig/Cosmo Start time Last Medication Dose Route Stop Time Status Admin Acetaminophen 650 MG Q6P PRN 08/31 1900 AC PO Albuterol Sulfate 3 ML EVERY 4 HRS/AWAKE 09/01 1600 AC 09/01 INH 2115 Albuterol Sulfate 3 ML Q4H PRN 09/01 0700 AC 09/01 INH 1116 Aspirin 81 MG DAILY 09/01 1000 AC 09/01 PO 0939 Carisoprodol 350 MG BID 08/31 2199 AC 09/01 PO 2203 Enoxaparin Sodium 40 MG DAILY 09/01 1000 AC 09/01 SC 0939 Guaifenesin 600 MG Q12 08/31 2359 AC 09/01 PO 2203 Guaifenesin 10 ML Q6P PRN 08/31 2345 AC PO Ipratropium [place] 2.5 ML EVERY 4 HRS/AWAKE 09/01 1600 AC 09/01 INH 2115 Methylprednisolone 40 MG Q8 09/01 2199 AC 09/02 IV 0540 Metoprolol Succinate 100 MG DAILY 09/01 1000 AC 09/01 PO 0939 Montelukast Sodium 10 MG DAILY 09/01 1000 AC 09/01 PO 0939 Nicotine 21 MG DAILY 09/01 1000 AC 09/01 TOP 0942 Oxycodone HCl 30 MG 4 TIMES/DAY 08/31 2199 AC 09/01 PO 2333 Assessment/Plan Assessment: This is a 56 yo obese F active smoker w/ hx of HTN and COPD admitted w/ exertional dyspnea, productive cough (minimal green sputum) and wheezing c/w COPD exacerbation. Active problems include (1) Hypoxia s/t COPD exacerbation (2) Coronary disease (3) Incidental thyroid nodule per CT (4) HTN (5) Chronic pain ( 6) Elevated random glucose to 109 Plan: 1) Hypoxia s/t COPD exacerbation -Contine nebulizer tx, monitor O2 sats -Change IV steroids from q6 hrs to q12 hrs due to noted improvement -IV azithromycin X 5 days for prophylaxis originally planned, possible allergic rxn to azithro, consider alternative prophlaxis w/ a fluoroquinolone -Smoking cessation counseling. Given nicotine patch and stated that she wants to quit -Hydration w/ NS 50mL/hr -Monitor Lac acid -F/U pulm as outpatient w/ Dr. Carter 2) Coronary dx -Abnormal stress test 2011 found EF<70% w/ small are of reversible ischemia in anteroseptal wall but lost to f/u -EKG showed sinus rythym + negative troponin -Cardio consult to assess today 3) Incidental thyroid nodule per CT -TSH + freeT4 -F/U outpatient for thyroid US 4) HTN -Continue metoprolol 5) Chronic pain s/t RA -Continue oxycodon for pain mgmt 6) Elevated random glucose -HbA1c -Lipid panel WNL -DVT prophylaxis -F/U case mgmt as pt has been lost to f/u previously and will require several outpatient f/u appointments
--- NOTE | 2016-09-02 07:40 | PN- Housestaff ---
CED PIZANO,[facility] 09/02/16 0740: Subjective Follow-up For: COPD exacerbation Subjective: She seen and examined this morning. She was lying in bed in no acute distress. She was that she feels much better as compared to yesterday her breathing has improved, still has a cough but getting better less productive. She reports some itching secondary to IV administration of azithromycin yesterday but reports that she does not have any true allergies to it as she has got in the past without any adverse abscess. Review of Systems Constitutional: Denies: chills, fever. Cardiovascular: Denies: chest pain, palpitations. Respiratory: Reports: see HPI, cough, sputum production. Denies: short of breath. Gastrointestinal: Denies: abdominal pain, constipation, diarrhea, nausea, vomiting. Genitourinary: Denies: dysuria, frequency. Objective Last 24 Hrs of Vital Signs/I&O Vital Signs Date Time Temp Pulse Resp B/P Pulse O2 O2 Flow FiO2 Ox Delivery Rate 09/02 1600 95 Nasal 2.0L Cannula 09/02 1430 97.3 72 19 150/80 94 Nasal 2.0L Cannula 09/02 1148 71 132/70 09/02 0830 92 Nasal 2.0L Cannula 09/02 0800 93 Nasal 2.0L Cannula 09/02 0708 97.6 69 20 120/70 97 Nasal Cannula 09/02 0000 Nasal 2.0L Cannula 09/01 2301 98.0 74 20 130/76 94 Nasal 2.0L Cannula 09/01 1801 98.2 80 20 159/72 92 Nasal 2.0L Cannula 09/01 1645 90 Room Air Intake & Output 09/02 1600 09/02 0800 09/02 0000 Intake Total 100 100 Output Total Balance 100 100 Intake, Oral 100 100 Physical Exam General Appearance: Alert, Oriented X3, Cooperative, No Acute Distress Cardiovascular: Regular Rate, Normal S1, Normal S2 Lungs: mild wheeze b/l in lower lung zones Abdomen: Normal Bowel Sounds, Soft, No Tenderness Extremities: No Clubbing, No Cyanosis, No Edema Current Medications: Current Medications Sig/Cosmo Start time Last Medication Dose Route Stop Time Status Admin Acetaminophen 650 MG Q6P PRN 08/31 1900 AC PO Albuterol Sulfate 2 PUF Q6P PRN 09/02 1345 AC INH Albuterol Sulfate 3 ML EVERY 4 HRS/AWAKE 09/01 1600 AC 09/02 INH 1157 Albuterol Sulfate 3 ML Q4H PRN 09/01 0700 DC 09/01 INH 1116 Aspirin 81 MG DAILY 09/01 1000 AC 09/02 PO 1147 Azithromycin 500 MG ONCE ONE 09/02 1515 DC PO 09/02 1516 Azithromycin 500 MG ONCE ONE 09/02 1345 CAN PO 09/02 1346 Azithromycin 500 MG DAILY@1700 09/01 1700 DC Sodium Chloride 250 ML IV Budesonide/ 2 PUF BID 09/02 1334 AC Formoterol Fumarate INH Carisoprodol 0 .STK-MED ONE 09/01 2151 DC PO Carisoprodol 350 MG BID 08/31 2200 AC 09/02 PO 0929 Enoxaparin Sodium 40 MG DAILY 09/01 1000 AC 09/02 SC 1152 Guaifenesin 0 .STK-MED ONE 09/01 2145 DC PO Guaifenesin 600 MG Q12 08/31 2359 AC 09/02 PO 0929 Guaifenesin 10 ML Q6P PRN 08/31 2345 AC 09/02 PO 1148 Ipratropium [place] 2.5 ML EVERY 4 HRS/AWAKE 09/01 1600 AC 09/02 INH 1157 Melatonin 5 MG QPM 09/02 2200 AC PO Methylprednisolone 40 MG Q12 09/02 2200 AC IV 09/02 2201 Methylprednisolone 40 MG Q8 09/01 2200 DC 09/02 IV 0540 Metoprolol Succinate 50 MG DAILY 09/03 1000 AC PO Metoprolol Succinate 100 MG DAILY 09/01 1000 DC 09/02 PO 1148 Montelukast Sodium 10 MG DAILY 09/01 1000 AC 09/02 PO 1148 Nicotine 14 MG DAILY 09/03 1000 AC TOP Nicotine 14 MG ONCE ONE 09/01 2345 DC 09/02 TOP 09/01 2346 0014 Nicotine 21 MG DAILY 09/01 1000 DC 09/02 TOP 1148 Omeprazole 40 MG DAILY AC 09/02 1340 AC PO Oxycodone HCl 30 MG 4 TIMES/DAY 08/31 2200 AC 09/02 PO 1443 Prednisone 40 MG DAILY 09/03 1000 AC PO Tiotropium [place] 1 PUF DAILY 09/02 1335 AC INH Assessment/Plan Assessment: This is a 56-year-old female with past medical history of hypertension, COPD not on any home oxygen, rheumatoid arthritis is in 2 to ED with chief complaint of shortness of breath and dry cough. Is upon presentation temperature 100.8, pulse 106, respiratory 24, blood pressure 184/90, satting in low 90s on 2 L nasal cannula oxygen. Worsening labs H&H 15.3 and 45.6, creatinine 0.8, lactic acid 2.2 Chest x-ray showed no evidence of acute pulmonary disease. We'll admit the patient on [facility] floor and monitor for the following conditions : Acute exacerbation of COPD: Oxygen supplementation as needed to keep saturation above 90. TRC/nebs as needed IV Solu-Medrol 40 mg Q12 today, if patient continues to well with start and by mouth prednisone tomorrow Azithromycin 250 mg daily to complete a five-day course. Patient was seen by industrial relations commissioner, recommendations appreciated. Nicotine patch for tobacco dependence. CT chest chest showed evidence of incidental finding of thyroid nodule. We will check TSH and free T4 and have patient follow-up with primary care physician upon discharge for further evaluation of the thyroid nodule. History of hypertension: Patient initially continued on home dose of metoprolol 100 mg daily but as per pulmonology recommendation dose has been reduced to 50 mg daily as strongly thought that is contributing towards her wheezing. She is to follow-up with bandage maker upon discharge, be provided with referral. Diet heart healthy. DVT prophylaxis: Lovenox Patient is full code Problem List: 1. COPD exacerbation 2. HTN (hypertension) Pain Ratin Pain Location: None Pain Goal: Remain pain free Pain Plan: roxicodone Tomorrow's Labs & Rationales: none AHMET GRIER MD 09/02/16 1213: Attending MD Review Statement Attending Statement Attending MD Statement: examined this patient, discuss w/resident/PA/WOMEN'S ACTIVITIES ADVISER, agreed w/resident/PA/WOMEN'S ACTIVITIES ADVISER, reviewed EMR data (avail), discussed with nursing, discussed with case mgmt, amended to note Attending Assessment/Plan: Patient seen and examined. She reports feeling much better today. She reports less shortness of breath and improved cough. She is afebrile and hemodynamically stable. She denies any chest pain at rest or with exertion here in the hospital. She is afebrile and saturating 90-93% on 2 L of oxygen. On examination she has fair entry bilaterally with decreased rhonchi compared to admission. We will continue her bronchodilator regimen and taper systemic steroid therapy to every 12 hours today. If she continues to do well clinically we can transition her to oral prednisone tomorrow. We'll follow-up cardiology consultation placed for evaluation of her history of abnormal stress test and complaints of resting chest pain on and off while at home. We'll also follow recommendations of the pulmonary service once completed.
--- NOTE | 2016-09-02 09:50 | Cons- Cardiology ---
General Information and HPI Consulting Request Date of Consult: 09/02/16 Requested By: AHMET GRIER M.D Reason for Consult: Previous positive stress test without follow-up. Source of Information: patient, old records Exam Limitations: no limitations History of Present Illness: Ms. Senait Russ is a 56-year-old female with past history of morbid obesity, "borderline" diabetes mellitus, hypertension, former heavy tobacco use, COPD without home O2, and rheumatoid arthritis who presented to the ED complaints of shortness of breath, ultimately felt to be secondary to an acute exacerbation of her COPD. In reviewing her medical record it was discovered that she had had an imaging stress test performed on 01/08/2012 to clear her for gastric bypass surgery, that was never performed, that was "positive" for ischemia. She was told that this would require follow-up by financial constraints precluded this occurring. Allergies/Medications Allergies: Coded Allergies: No Known Allergies (09/02/16) Home Med List: Albuterol Sulfate (Ventolin Hfa) 0.09 MG/Actuation GARCIA 2 PUFF INH Q6H PRN WHEEZING Albuterol Sulfate/Ipratropiu (Duoneb) 3 MG/3 ML NEB 1 Vial INH/KARI 4 TIMES/DAY ASTHMA Azithromycin 250 MG TABLET 1 TAB PO DAILY lung infection Carisoprodol 350 MG TABLET 1 TAB PO BID MUSCLE SPASMS (Reported) Fluticasone-Salmeterol (Advair 500-50 Diskus) 1 UNIT UNIT 1 PUF INH BID SOB ( Reported) Metoprolol Succ XL (Toprol Xl 100 MG) 100 MG TAB.ER.24H 1 TAB PO DAILY HEART HEALTH (Reported) Montelukast Sodium (Singulair) 10 MG TABLET 1 TAB PO DAILY COPD (Reported) Nicotine (Nicoderm Cq) 21 MG/24 HR TDM 21 MG TOP DAILY SMOKING CESSATION Oxycodone HCl 30 MG TABLET 1 TAB PO 4XDAILY PAIN (Reported) Prednisone 10 MG TABLET 1 TAB PO SI COPD On Take 09/03-09/05 take 4 tabs everyday 09/06-09/08 take 3 tabs everyday 09/09-09/11 take 2 tabs everyday 09/13-09/14 take 1 tab everyday then stop Review of Systems Review of Systems: A 14 point system review was obtained and was noncontributory, other than with the fact that she wears glasses and has chronic back problems from disc disease. Past History Travel History Traveled to [place] past 21 day No Medical History Blood Transfusion Hx: No Neurological: NONE EENT: NONE Cardiovascular: hypertension Respiratory: bronchitis, COPD, pneumonia Gastrointestinal: NONE Hepatic: NONE Renal: NONE Musculoskeletal: rheumatoid arthritis, CHRONIC BACK PAIN Psychiatric: NONE Endocrine: NONE Blood Disorders: NONE Cancer(s): NONE LINE PERSON/Reproductive: NONE Surgical History Surgical History: cholecystectomy, , hernia repair-umbilical ( Dilatation and curettage) Family History Relations & Conditions If Any: FATHER FH: leukemia FATHER FH: diabetes mellitus FH: hypertension Family History Reviewed? reviewed/non-contributory (mother diabetes mellitus.), MOTHER FH DM Psychosocial History Where Do You Live? Home Who Do You Live With? self Services at Home: None Primary Language: Khmer Smoking Status: Current Some Day Smoker ETOH Use: denies use Illicit Drug Use: denies illicit drug use Functional Ability ADLs Independent: dressing, eating, toileting, bathing. Ambulation: independent IADLs Independent: shopping, housework, finances, food prep, telephone, transportation , medication admin. Exam & Diagnostic Data Vital Signs and I&O Vital Signs Date Time Temp Pulse Resp B/P Pulse O2 O2 Flow FiO2 Ox Delivery Rate 09/02 1600 95 Nasal 2.0L Cannula 09/02 1430 97.3 72 19 150/80 94 Nasal 2.0L Cannula 09/02 1148 71 132/70 09/02 0830 92 Nasal 2.0L Cannula 09/02 0800 93 Nasal 2.0L Cannula 09/02 0708 97.6 69 20 120/70 97 Nasal Cannula 09/02 0000 Nasal 2.0L Cannula 09/01 2301 98.0 74 20 130/76 94 Nasal 2.0L Cannula 09/01 1801 98.2 80 20 159/72 92 Nasal 2.0L Cannula Intake & Output 09/02 1600 09/02 0800 09/02 0000 09/01 1600 09/01 0000 Intake Total 560 559 0874 0 1370 Output Total 200 0 Balance 726 375 0664 0 1370 Intake, IV 800 1250 Intake, Oral 522 143 4034 0 120 Output, Urine 200 0 Patient 265 lb Weight Physical Exam: Well-developed, morbidly obese middle-aged female in no acute distress. Vital signs: See above. HEENT: Normocephalic, atraumatic, EOMI, moist membranes. Neck: No JVD, no bruits. Lungs: Breath sounds bilaterally. Heart: S1, S2 (both distance) with no murmur, gallop, or rub appreciated. Abdomen: Soft, nontender, positive bowel sounds. Extremities: No edema. Assessment/Plan Assessment/Plan Ms. Russ is a middle-aged female with morbid obesity, "borderline" diabetes mellitus, hypertension, former heavy tobacco use, COPD without home O2, rheumatoid arthritis, and previous "positive" pharmacologic stress test performed to clear her for bariatric surgery, that was never performed, who presented to the ED with complaints of shortness of breath, that was ultimately felt to be secondary to an acute exacerbation of her COPD. Given her "borderline" risk equivalent, multiple risk factors for coronary heart disease, and her previous stress test findings there is concern that underlying ischemia is present and needs further evaluation and management. It would be recommended that she be followed up on an outpatient basis to have a repeat pharmacologic stress test performed. If this is again positive for ischemia, I would have a low threshold for proceeding with cardiac catheterization with an eye towards revascularization. Would consider adding antiplatelet therapy to her medical regimen as enteric- coated aspirin 81 mg daily. Would also consider the addition of an GENTRY inhibitor or angiotensin receptor kimberly to her antihypertensive regimen, given her "borderline" diabetes mellitus. Would continue her on statin and beta 1 selective beta kimberly therapy. Would repeat a glycosylated hemoglobin A1c. Continue with nicotine patch. She also needs to follow-up with the primary care physician and again consider bariatric surgery which could benefit her overall health on many levels. Further recommendations will follow, Thank you. Consult Acknowledgment - Thank you for your consult request.
--- NOTE | 2016-09-02 12:30 | Cons- Pulmonary ---
General Information and HPI Consulting Request Date of Consult: 09/02/16 Requested By: med team History of Present Illness: This is a 56-year-old female with past medical history of hypertension, COPD not on any home oxygen, rheumatoid arthritis is in 2 to ED with chief complaint of shortness of breath and dry cough. Short of breath for the past couple of days along with having cough which is productive of scant yellowish sputum. She did not report any fever, chills. She denies any nausea, vomiting, abdominal pain, changes in bowel movements, any urinary symptoms, recent travels. She reports that she has been a smoker for the past 40 years initially was smoking a couple of packs a day but now has lower down to couple of cigarettes now and then ever since she was diagnosed with COPD. She gets roughly 1 episode of bronchitis per year, has not seen any mine patrol as of yet but thinks that it's time to see one. She was at home, continue her daily chores by herself without any difficulty. Review of Systems Constitutional: Reports: see HPI. Cardiovascular: Denies: chest pain, palpitations. Respiratory: Reports: see HPI, cough, short of breath, sputum production. GI: Denies: abdominal pain, constipation, diarrhea, nausea, vomiting. Genitourinary: Denies: dysuria, frequency. Allergies/Medications Allergies: Coded Allergies: azithromycin (Mild, ITCHING AND REDNESS AT IV SITE 09/01/16) Home Med List: Albuterol Sulfate (Ventolin Hfa) 0.09 MG/Actuation GARCIA 2 PUFF INH Q6H PRN WHEEZING Albuterol Sulfate/Ipratropiu (Duoneb) 3 MG/3 ML NEB 1 Vial INH/KARI 4 TIMES/DAY ASTHMA Carisoprodol 350 MG TABLET 1 TAB PO BID MUSCLE SPASMS (Reported) Fluticasone-Salmeterol (Advair 500-50 Diskus) 1 UNIT UNIT 1 PUF INH BID SOB ( Reported) Metoprolol Succ XL (Toprol Xl 100 MG) 100 MG TAB.ER.24H 1 TAB PO DAILY HEART HEALTH (Reported) Montelukast Sodium (Singulair) 10 MG TABLET 1 TAB PO DAILY COPD (Reported) Nicotine (Nicoderm Cq) 21 MG/24 HR TDM 21 MG TOP DAILY SMOKING CESSATION Oxycodone HCl 30 MG TABLET 1 TAB PO 4XDAILY PAIN (Reported) Past History Travel History Traveled to [place] past 21 day No Medical History Blood Transfusion Hx: No Neurological: NONE EENT: NONE Cardiovascular: hypertension Respiratory: bronchitis, COPD, pneumonia Gastrointestinal: NONE Hepatic: NONE Renal: NONE Musculoskeletal: rheumatoid arthritis, CHRONIC BACK PAIN Psychiatric: NONE Endocrine: NONE Blood Disorders: NONE Cancer(s): NONE ZYGLO INSPECTOR/Reproductive: NONE Surgical History Surgical History: non-contributory Family History Relations & Conditions If Any: FATHER FH: leukemia FATHER FH: diabetes mellitus FH: hypertension Psychosocial History Where Do You Live? Home Who Do You Live With? self Services at Home: None Primary Language: Afghan Smoking Status: Current Some Day Smoker ETOH Use: denies use Illicit Drug Use: denies illicit drug use Functional Ability ADLs Independent: dressing, eating, toileting, bathing. Ambulation: independent IADLs Independent: shopping, housework, finances, food prep, telephone, transportation , medication admin. Exam & Diagnostic Data Last 24 Hrs of Vital Signs/I&O Vital Signs Date Time Temp Pulse Resp B/P Pulse O2 O2 Flow FiO2 Ox Delivery Rate 09/02 1148 71 132/70 09/02 0830 92 Nasal 2.0L Cannula 09/02 0800 93 Nasal 2.0L Cannula 09/02 0708 97.6 69 20 120/70 97 Nasal Cannula 09/02 0000 Nasal 2.0L Cannula 09/01 2301 98.0 74 20 130/76 94 Nasal 2.0L Cannula 09/01 1801 98.2 80 20 159/72 92 Nasal 2.0L Cannula 09/01 1645 90 Room Air 09/01 1429 98.4 80 20 128/60 97 Room Air Intake & Output 09/02 1600 09/02 0800 09/02 0000 Intake Total 100 100 Output Total Balance 100 100 Intake, Oral 100 100 Last 48 Hrs of Labs/[place]: Laboratory Tests 09/01/16 1006: Urine Color YEL, Urine Clarity HAZY H, Urine pH 7.0, Ur Specific [place] 1.015, Urine Protein NEG, Urine Ketones NEG, Urine Nitrite POS H, Urine Bilirubin NEG, Urine Urobilinogen 0.2, Ur Leukocyte Esterase NEG, Ur Microscopic SEDIMENT EXAMINED, Urine WBC RARE, Ur Epithelial Cells RARE, Urine Hemoglobin NEG, Urine Glucose NEG 09/01/16 0600: Hemoglobin A1c 6.7 H 09/01/16 0600: Anion Gap 15, Estimated GFR > 60, BUN/Creatinine Ratio 18.6, Triglycerides 68, Cholesterol 157, LDL Cholesterol, Calc 97, HDL Cholesterol 47, Cholesterol/HDL Ratio 3, CBC w Diff NO MAN DIFF REQ, RBC 5.12, MCV 85.2, MCH 28.1, RDW 15.1 H, MPV 7.4, Gran % 85.2 H, Lymphocytes % 11.6 L, Monocytes % 2.9, Eosinophils % 0.1, Basophils % 0.2, Absolute Granulocytes 7.2 H, Absolute Lymphocytes 1.0 L, Absolute Monocytes 0.2, Absolute Eosinophils 0, Absolute Basophils 0, PUBS MCHC 33.0 08/31/16 1911: Lactic Acid 2.1 08/31/16 1612: Virus Culture Pending 08/31/16 1603: Anion Gap 14, Estimated GFR > 60, BUN/Creatinine Ratio 17.5, Glucose 109 H, Lactic Acid 2.2 H, Calcium 9.6, Total Bilirubin 0.4, AST 19, ALT 38, Alkaline Phosphatase 104, Troponin I < 0.01, Total Protein 7.3, Albumin 4.1, Globulin 3.2 , Albumin/Globulin Ratio 1.3, TSH 0.580, Free T4 0.93, CBC w Diff NO MAN DIFF REQ, RBC 5.35, MCV 85.2, MCH 28.5, RDW 15.1 H, MPV 7.9, Gran % 80.3 H, Lymphocytes % 13.1 L, Monocytes % 4.9, Eosinophils % 1.4, Basophils % 0.3, Absolute Granulocytes 8.4 H, Absolute Lymphocytes 1.4, Absolute Monocytes 0.5, Absolute Eosinophils 0.1, Absolute Basophils 0, PUBS MCHC 33.5 SIGNIFICANT DATA Chest x-ray showed no significant pneumonia. His chest CT scan done showed no focal pneumonia, bilateral airway disease noted suggestive of diffuse bronchitis Atelectasis Small hiatal hernia Thyroid nodule Blood work was extensively reviewed White count initially was 10 Baseline bicarbonate was not elevated Assessment/Plan Impression/Plan: CT CHEST IMPRESSION: 1. No focal pneumonia. 2. Airways disease. 3. Linear bandlike opacities at both lung bases with the appearance of subsegmental/platelike atelectasis. 4. A tiny hiatal hernia. 5. Thyroid nodule. Evaluate with thyroid ultrasound. Physical Exam General Appearance Alert, Oriented X3, Cooperative, No Acute Distress Cardiovascular Regular Rate, Normal S1, Normal S2, No Murmurs Lungs b/lateral wheeze in all 3 lung zones Abdomen Normal Bowel Sounds, Soft, No Tenderness Extremities No Clubbing, No Cyanosis, No Edema IMPRESSION This is a 56-year-old lady with morbid obesity, diabetes, hypertension, significant tobacco use, recurrent bronchitis, history suggestive of rheumatoid, chronic low back pain, signs and symptoms suggestive of obstructive sleep apnea, small thyroid nodule, chronic pain syndrome, now comes in with * Acute COPD exacerbation with bronchitis * HTN * Mild hypoxemia due to significant COPD * Small hiatal hernia with recurrent GERD * Significant nicotine dependence * Small thyroid nodule * Morbid obesity with signs and symptoms suggestive of obstructive sleep apnea * High risk for lung cancer needs screening CT scan starting next year * Chronic pain syndrome RECOMMENDATION Continue current nebulizer therapy Reduce betablocker to 50 mg as she is still wheezing and pt will benefit from calcium channel blockers and an EPHRAIM Start Spiriva 1 puff once a day and Symbicort 162 puffs twice a day Continue montelukast Reduce nicotine to 14 mg Chained a nebulizer to albuterol only and change it to 4 times a day when necessary Discontinue IV steroids started on by mouth prednisone 40 mg tomorrow Give azithromycin 500 mg today to complete her dose Outpatient sleep study Omeprazole 40 mg daily for one month Needs outpatient follow-up patient is aware Consult Acknowledgment - Thank you for your consult request.
[2016-09-02] MEDS ORDERED: PREDNISONE10 M2 PO (13:26)
[2016-09-02] MEDS ORDERED: AZITHROMYCIN250 M1 PO ×2 (13:27→15:20)
--- NOTE | 2016-09-02 13:48 | Patient Discharge Instructions ---
Discharge Instructions General Discharge Information You were seen/treated for: COPD exacerbation Special Instructions: Please schedule a follow-up appointment with your boston cutter in 1 week, you might need an outpatient sleep study, please talk about that, Your HBA1c 6.7 that means you have borderline diabetes, please talk to your PCP regarding diet and lifestyle modification. Dose of metoprolol has been decreased to 50 mg daily as per pulmonology recommendation as it might be adding to wheezing. Please cut down on smoking as it will worsen her COPD. CT chest chest showed evidence of incidental finding of thyroid nodule. TSH and free T4 normal please follow-up with primary care physician upon discharge for further evaluation of the thyroid nodule. Please follow-up with Benjamin Sevilla MD, press setup operator in 1 week, referral has been provided. Diet Continue normal diet: Yes Recommended Diet: Heart Healthy Activity Activity Self Limited: Yes Acute Coronary Syndrome Inclusion Criteria At DC or during hospital stay patient has or had the following: ACS DIAGNOSIS No Discharge Core Measures Meds if any: Prescribed or Continued at Discharge Meds if any: NOT Prescribed or Continued at Discharge Congestive Heart Failure Inclusion Criteria At DC or during hospital stay patient has or had the following: CHF DIAGNOSIS No Discharge Core Measures Meds if any: Prescribed or Continued at Discharge Meds if any: NOT Prescribed or Continued at Discharge Cerebrovascular accident Inclusion Criteria At DC or during hospital stay patient has or had the following: CVA/TIA Diagnosis No Discharge Core Measures Meds if any: Prescribed or Continued at Discharge Meds if any: NOT Prescribed or Continued at Discharge Venous thromboembolism Inclusion Criteria VTE Diagnosis No VTE Type NONE VTE Confirmed by (Test) NONE Discharge Core Measures - Per Current guidelines, there needs to be overlap - treatment for the first 5 days of Warfarin therapy. - If discharged on Warfarin prior to 5 days of - overlap therapy, the patient will need to be - assessed for post discharge needs including - *Post discharge parental anticoagulation - *Warfarin and/or parental anticoagulation education - *Follow up date to check INR post discharge At least 5 days overlap therapy as Inpatient No Meds if any: Prescribed or Continued at Discharge Note: Overlap Therapy is Warfarin and Anticoagulant Meds if any: NOT Prescribed or Continued at Discharge
[2016-09-02 14:30] VITALS: BP 150/80
[2016-09-02 22:31] VITALS: BP 112/68
[2016-09-03 06:39] VITALS: BP 112/60
--- NOTE | 2016-09-03 08:54 | PN- Housestaff ---
CED PIZANO,[facility] 09/03/16 0854: Subjective Follow-up For: COPD exacerbation Subjective: Patient seen and examined this morning. She was lying comfortably in bed in no acute distress. She is complaining of shortness of breath on ambulation. Otherwise vitals remained within normal limits, remains afebrile. Review of Systems Constitutional: Denies: chills, fever. Cardiovascular: Denies: chest pain, palpitations. Respiratory: Reports: cough, short of breath, sputum production. Gastrointestinal: Denies: abdominal pain, constipation, diarrhea, nausea, vomiting. Genitourinary: Denies: dysuria, frequency. Objective Last 24 Hrs of Vital Signs/I&O Vital Signs Date Time Temp Pulse Resp B/P Pulse O2 O2 Flow FiO2 Ox Delivery Rate 09/03 1600 Nasal 3.0L Cannula 09/03 1514 98.3 67 20 140/82 95 09/03 0856 93 Nasal 2.0L Cannula 09/03 0800 93 Nasal 2.0L Cannula 09/03 0639 97.8 57 20 112/60 91 Room Air 09/03 0000 92 Room Air 09/02 2231 98.3 70 20 112/68 92 Nasal 2.0L Cannula Intake & Output 09/03 1600 09/03 0800 09/03 0000 Intake Total 500 250 450 Output Total Balance 500 250 450 Intake, Oral 500 250 450 Physical Exam General Appearance: Alert, Oriented X3, Cooperative, No Acute Distress Cardiovascular: Regular Rate, Normal S1, Normal S2, No Murmurs Lungs: bilateral mid and lower lung zone wheeze Abdomen: Normal Bowel Sounds, Soft, No Tenderness Extremities: No Clubbing, No Cyanosis, No Edema Current Medications: Current Medications Sig/Cosmo Start time Last Medication Dose Route Stop Time Status Admin Acetaminophen 650 MG Q6P PRN 08/31 1900 AC PO Albuterol Sulfate 3 ML EVERY 4 HRS/AWAKE 09/02 1624 AC 09/03 INH 1600 Albuterol Sulfate 2 PUF Q6P PRN 09/02 1345 AC INH Aspirin 81 MG DAILY 09/01 1000 AC 09/03 PO 0957 Azithromycin 250 MG ONCE ONE 09/03 0900 DC 09/03 PO 09/03 0901 0956 Budesonide/ 2 PUF BID 09/02 1334 AC 09/03 Formoterol Fumarate INH 0956 Carisoprodol 350 MG BID 08/31 2200 AC 09/03 PO 0953 Enoxaparin Sodium 40 MG DAILY 09/01 1000 AC 09/03 SC 0959 Guaifenesin 600 MG Q12 08/31 2359 AC 09/03 PO 0957 Guaifenesin 10 ML Q6P PRN 08/31 2345 AC 09/02 PO 1855 Ipratropium [place] 2.5 ML EVERY 4 HRS/AWAKE 09/01 1600 AC 09/02 INH 1157 Melatonin 5 MG QPM 09/02 2200 AC 09/02 PO 2114 Methylprednisolone 40 MG Q12 09/02 2199 DC 09/02 IV 09/02 Metoprolol Succinate 50 MG DAILY 09/03 1000 AC 09/03 PO 0958 Montelukast Sodium 10 MG DAILY 09/01 1000 AC 09/03 PO 0957 Nicotine 14 MG DAILY 09/03 1000 AC 09/03 TOP 0957 Omeprazole 40 MG DAILY AC 09/02 1340 AC 09/03 PO 0619 Oxycodone HCl 30 MG 4 TIMES/DAY 08/31 2200 AC 09/03 PO 1738 Patient Medication 1 ED .STK-MED ONE 09/03 1347 [place] Teaching ED 09/03 1348 Prednisone 40 MG DAILY 09/03 1000 AC 09/03 PO 0958 Tiotropium [place] 1 PUF DAILY 09/02 1335 AC 09/03 INH 0954 Assessment/Plan Assessment: This is a 56-year-old female with past medical history of hypertension, COPD not on any home oxygen, rheumatoid arthritis is in 2 to ED with chief complaint of shortness of breath and dry cough. Is upon presentation temperature 100.8, pulse 106, respiratory 24, blood pressure 184/90, satting in low 90s on 2 L nasal cannula oxygen. Worsening labs H&H 15.3 and 45.6, creatinine 0.8, lactic acid 2.2 Chest x-ray showed no evidence of acute pulmonary disease. We'll admit the patient on [facility] floor and monitor for the following conditions : Acute exacerbation of COPD: Oxygen supplementation as needed to keep saturation above 90. TRC/nebs as needed IV Solu-Medrol 40 mg Q12 switched to by mouth prednisone. Patient was to go home today but she desaturated on ambulation and required 3 L of oxygen to remain oxygen saturation of around 90%. Azithromycin 250 mg daily to complete a five-day course. Patient was seen by geomatics professor, recommendations appreciated. Nicotine patch for tobacco dependence. CT chest chest showed evidence of incidental finding of thyroid nodule. We will check TSH and free T4 and have patient follow-up with primary care physician upon discharge for further evaluation of the thyroid nodule. History of hypertension: Patient initially continued on home dose of metoprolol 100 mg daily but as per pulmonology recommendation dose has been reduced to 50 mg daily as strongly thought that is contributing towards her wheezing. She is to follow-up with 3d modeler upon discharge, be provided with referral. Diet heart healthy. DVT prophylaxis: Lovenox Patient is full code Problem List: 1. COPD exacerbation Pain Ratin Pain Location: Joints second to arthritis Pain Goal: Remain pain free Pain Plan: Oxycodone Tomorrow's Labs & Rationales: None MARVEL PIZANO,AHMET 09/03/16 1411: Attending MD Review Statement Attending Statement Attending MD Statement: examined this patient, discuss w/resident/PA/SHOP SUPERINTENDENT, agreed w/resident/PA/SHOP SUPERINTENDENT, reviewed EMR data (avail), discussed with nursing, discussed with case mgmt, amended to note Attending Assessment/Plan: She is seen and examined. She does report feeling better. She reports mild productive cough. Denies chest pain. Denies shortness of breath at rest but does admit to mild shortness of breath with exertion. This is improved from admission note. She however continues to desaturate on ambulation. She continues to require oxygen supplementation but is very hesitant about going home on oxygen therapy. On examination she has failed she bilaterally with mild expiratory wheeze. Pulmonary follow-up appreciated however patient does want to go home on oxygen therapy. We will continue bronchodilator therapy and systemic therapy overnight. However if tomorrow she continues to require oxygen supplementation she understands that we have no other option but to discharge her with oxygen supplementation. She is agreeable to this. Recommendations: -Continue bronchodilator therapy and steroid therapy overnight. -If she continues to desaturate on room air at rest and ambulation tomorrow she will require home O2 upon discharge. -Decrease dose of beta kimberly therapy not to reduce or wheezing. -Start patient on low-dose ARB therapy. -Begin patient on aspirin and low-dose statin therapy. -Patient to follow-up with cardiology service as an outpatient forher history of abnormal stress test.
[2016-09-03] MEDS ORDERED: ATORVASTATIN CA10 M1 PO (09:06)
[2016-09-03] MEDS ORDERED: ASPIRIN EC81 M1 PO (09:06)
--- NOTE | 2016-09-03 10:36 | PN- Pulmonary ---
Subjective HPI/Critical Care Issues: Doing well Has some upper airway transmitted sounds from tracheomalacia vs vc dysfunction Better Objective Current Medications: Current Medications Sig/Cosmo Start time Last Medication Dose Route Stop Time Status Admin Acetaminophen 650 MG Q6P PRN 08/31 1900 AC PO Albuterol Sulfate 3 ML EVERY 4 HRS/AWAKE 09/02 1624 AC 09/03 INH 0853 Albuterol Sulfate 2 PUF Q6P PRN 09/02 1345 AC INH Albuterol Sulfate 3 ML EVERY 4 HRS/AWAKE 09/01 1600 DC 09/02 INH 1157 Albuterol Sulfate 3 ML Q4H PRN 09/01 0700 DC 09/01 INH 1116 Aspirin 81 MG DAILY 09/01 1000 AC 09/03 PO 0957 Azithromycin 250 MG ONCE ONE 09/03 0900 DC 09/03 PO 09/03 0901 0956 Azithromycin 500 MG ONCE ONE 09/02 1515 DC 09/02 PO 09/02 1516 1729 Azithromycin 500 MG ONCE ONE 09/02 1345 CAN PO 09/02 1346 Budesonide/ 2 PUF BID 09/02 1334 AC 09/03 Formoterol Fumarate INH 0956 Carisoprodol 350 MG BID 08/31 2200 AC 09/03 PO 0953 Enoxaparin Sodium 40 MG DAILY 09/01 1000 AC 09/03 SC 0959 Guaifenesin 10 ML .STK-MED ONE 09/02 1439 DC PO 09/02 1440 Guaifenesin 10 ML .STK-MED ONE 09/02 1135 DC PO 09/02 1136 Guaifenesin 600 MG Q12 08/31 2359 AC 09/03 PO 0957 Guaifenesin 10 ML Q6P PRN 08/31 2345 AC 09/02 PO 1855 Ipratropium [place] 2.5 ML EVERY 4 HRS/AWAKE 09/01 1600 AC 09/02 INH 1157 Melatonin 5 MG QPM 09/02 2199 AC 09/02 PO 2114 Methylprednisolone 40 MG Q12 09/02 2199 DC 09/02 IV 09/02 Methylprednisolone 40 MG Q8 09/010 DC 09/02 IV 0540 Metoprolol Succinate 50 MG DAILY 09/03 1000 AC 09/03 PO 0958 Metoprolol Succinate 100 MG DAILY 09/01 1000 DC 09/02 PO 1148 Montelukast Sodium 10 MG DAILY 09/01 1000 AC 09/03 PO 0957 Nicotine 14 MG DAILY 09/03 1000 AC 09/03 TOP 0957 Nicotine 21 MG DAILY 09/01 1000 DC 09/02 TOP 1148 Omeprazole 40 MG DAILY AC 09/02 1340 AC 09/03 PO 0619 Oxycodone HCl 30 MG 4 TIMES/DAY 08/31 2200 AC 09/03 PO 0953 Prednisone 40 MG DAILY 09/03 1000 AC 09/03 PO 0958 Tiotropium [place] 1 PUF DAILY 09/02 1335 AC 09/03 INH 0954 Vital Signs & I&O Last 24 Hrs of Vitals and I&O: Vital Signs Date Time Temp Pulse Resp B/P Pulse O2 O2 Flow FiO2 Ox Delivery Rate 09/03 0856 93 Nasal 2.0L Cannula 09/03 0639 97.8 57 20 112/60 91 Room Air 09/03 0000 92 Room Air 09/02 2231 98.3 70 20 112/68 92 Nasal 2.0L Cannula 09/02 1600 95 Nasal 2.0L Cannula 09/02 1430 97.3 72 19 150/80 94 Nasal 2.0L Cannula 09/02 1148 71 132/70 Intake & Output 09/03 1600 09/03 0800 09/03 0000 Intake Total 250 450 Output Total Balance 250 450 Intake, Oral 250 450 Impression/Plan Impression/Plan Impression/Plan: CT CHEST IMPRESSION: 1. No focal pneumonia. 2. Airways disease. 3. Linear bandlike opacities at both lung bases with the appearance of subsegmental/platelike atelectasis. 4. A tiny hiatal hernia. 5. Thyroid nodule. Evaluate with thyroid ultrasound. Physical Exam General Appearance Alert, Oriented X3, Cooperative, No Acute Distress Cardiovascular Regular Rate, Normal S1, Normal S2, No Murmurs Lungs b/lateral wheeze in all 3 lung zones Abdomen Normal Bowel Sounds, Soft, No Tenderness Extremities No Clubbing, No Cyanosis, No Edema IMPRESSION This is a 56-year-old lady with morbid obesity, diabetes, hypertension, significant tobacco use, recurrent bronchitis, history suggestive of rheumatoid, chronic low back pain, signs and symptoms suggestive of obstructive sleep apnea, small thyroid nodule, chronic pain syndrome, now comes in with * Acute COPD exacerbation with bronchitis improving * 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 * HTN * Mild hypoxemia due to significant COPD * Small hiatal hernia with recurrent GERD * Significant nicotine dependence * Small thyroid nodule * Morbid obesity with signs and symptoms suggestive of obstructive sleep apnea * High risk for lung cancer needs screening CT scan starting next year * Chronic pain syndrome RECOMMENDATION Continue current nebulizer therapy Reduce betablocker to 50 mg as she is still wheezing and pt will benefit from calcium channel blockers and an EPHRAIM Spiriva 1 puff once a day and Symbicort 162 puffs twice a day Continue montelukast Reduce nicotine to 14 mg Chained a nebulizer to albuterol only and change it to 4 times a day when necessary Prednisone 40 mg and wean Outpatient sleep study Omeprazole 40 mg daily for one month Wean oxygen down Ok to dc soon
[2016-09-03] MEDS ORDERED: COZAAR25 M1 PO (10:53)
[2016-09-03] MEDS ORDERED: TOPROL XL50 M1 PO (13:13)
[2016-09-03 15:14] VITALS: BP 140/82
[2016-09-03 22:08] VITALS: BP 122/64
[2016-09-04 06:10] VITALS: BP 112/70
--- NOTE | 2016-09-04 07:24 | PN- Housestaff ---
See Addendum Subjective Follow-up For: COPD exacerbation Review of Systems Constitutional: Denies: chills, fever. Cardiovascular: Denies: chest pain, palpitations. Respiratory: Reports: cough, short of breath, sputum production. Gastrointestinal: Denies: abdominal pain, constipation, diarrhea, nausea, vomiting. Genitourinary: Denies: dysuria, frequency. Objective Last 24 Hrs of Vital Signs/I&O Vital Signs Date Time Temp Pulse Resp B/P Pulse O2 O2 Flow FiO2 Ox Delivery Rate 09/04 1031 65 128/84 09/04 0804 94 Nasal 2.0L Cannula 09/04 08 93 Nasal 3.0L Cannula 09/04 0610 98.0 58 20 112/70 95 Nasal 3.0L Cannula 09/04 0000 Nasal 3.0L Cannula 09/038 97.6 64 20 122/64 95 Nasal Cannula 09/03 2131 Nasal 2.0L Cannula 09/03 2002 Nasal 2.0L Cannula 09/03 1600 Nasal 3.0L Cannula 09/03 1514 98.3 67 20 140/82 95 Intake & Output 09/04 1600 09/04 0800 09/04 0000 Intake Total 720 300 510 Output Total Balance 720 300 510 Intake, IV 10 Intake, Oral 720 300 500 Physical Exam General Appearance: Alert, Oriented X3, Cooperative, No Acute Distress Cardiovascular: Regular Rate, Normal S1, Normal S2, No Murmurs Lungs: mild wheeze b/l Abdomen: Normal Bowel Sounds, Soft, No Tenderness Extremities: No Clubbing, No Cyanosis, No Edema Current Medications: Current Medications Sig/Cosmo Start time Last Medication Dose Route Stop Time Status Admin Acetaminophen 650 MG .STK-MED ONE 09/04 0223 DC PO 09/04 0224 Acetaminophen 650 MG Q6P PRN 08/31 1900 DCD 09/04 PO 0227 Albuterol Sulfate 3 ML EVERY 4 HRS/AWAKE 09/02 1624 DC 09/04 INH 1113 Albuterol Sulfate 2 PUF Q6P PRN 09/02 1345 DCD INH Aspirin 81 MG DAILY 09/01 1000 DCD 09/04 PO 1031 Budesonide/ 2 PUF BID 09/02 1334 DCD 09/04 Formoterol Fumarate INH 1029 Carisoprodol 350 MG BID 08/31 2199 DCD 09/04 PO 1029 Enoxaparin Sodium 40 MG DAILY 09/01 1000 DCD 09/04 SC 1031 Guaifenesin 600 MG Q12 08/31 2359 DCD 09/04 PO 1031 Guaifenesin 10 ML Q6P PRN 08/31 2345 DCD 09/02 PO 1855 Ipratropium [place] 2.5 ML EVERY 4 HRS/AWAKE 09/01 1600 DCD 09/02 INH 1157 Melatonin 5 MG QPM 09/02 2200 DCD 09/03 PO 2133 Metoprolol Succinate 50 MG DAILY 09/03 1000 DCD 09/04 PO 1031 Montelukast Sodium 10 MG DAILY 09/01 1000 DCD 09/04 PO 1031 Nicotine 14 MG DAILY 09/03 1000 DCD 09/04 TOP 1031 Omeprazole 40 MG DAILY AC 09/02 1340 DCD 09/04 PO 0610 Oxycodone HCl 30 MG 4 TIMES/DAY 08/31 2200 DCD 09/04 PO 1030 Patient Medication 1 ED .STK-MED ONE 09/04 1339 [place] Teaching ED 09/04 1340 Prednisone 40 MG DAILY 09/03 1000 DCD 09/04 PO 1031 Tiotropium [place] 1 PUF DAILY 09/02 1335 DCD 09/04 INH 1029 Assessment/Plan Assessment: This is a 56-year-old female with past medical history of hypertension, COPD not on any home oxygen, rheumatoid arthritis is in 2 to ED with chief complaint of shortness of breath and dry cough. Is upon presentation temperature 100.8, pulse 106, respiratory 24, blood pressure 184/90, satting in low 90s on 2 L nasal cannula oxygen. Worsening labs H&H 15.3 and 45.6, creatinine 0.8, lactic acid 2.2 Chest x-ray showed no evidence of acute pulmonary disease. We'll admit the patient on [facility] floor and monitor for the following conditions : Acute exacerbation of COPD: Oxygen supplementation as needed to keep saturation above 90. TRC/nebs as needed IV Solu-Medrol 40 mg Q12 switched to by mouth prednisone. Patient to go on home oxygen to remain oxygen saturation of above 90%. Azithromycin 250 mg daily to complete a five-day course. Patient to f/u with heating and cooling systems engineer in 1 week. Nicotine patch for tobacco dependence. CT chest chest showed evidence of incidental finding of thyroid nodule. We will check TSH and free T4 and have patient follow-up with primary care physician upon discharge for further evaluation of the thyroid nodule. History of hypertension: Patient initially continued on home dose of metoprolol 100 mg daily but as per pulmonology recommendation dose has been reduced to 50 mg daily as strongly thought that is contributing towards her wheezing. She is to follow-up with vehicle leasing and rental manager upon discharge, be provided with referral. Diet heart healthy. DVT prophylaxis: Lovenox Patient is full code Problem List: 1. COPD exacerbation Pain Ratin Pain Location: none Pain Goal: Remain pain free Pain Plan: oxycodone Tomorrow's Labs & Rationales: none pt to be dc
--- NOTE | 2016-09-04 07:25 | Discharge Summary ---
Visit Information Visit Dates Admission Date: 08/31/16 Discharge Date: 09/04/16 Hospital Course Course Attending Physician: GABBY KWON MD Primary Care Physician: MIRANDA JAYHCA [facility] Course: This is a 56-year-old female with past medical history of hypertension, COPD not on any home oxygen, rheumatoid arthritis is in 2 to ED with chief complaint of shortness of breath and dry cough. Vitals upon presentation temperature 100.8, pulse 106, respiratory 24, blood pressure 184/90, satting in low 90s on 2 L nasal cannula oxygen. Worsening labs H&H 15.3 and 45.6, creatinine 0.8, lactic acid 2.2 Chest x-ray showed no evidence of acute pulmonary disease. [facility] for[facility]ute Hypoxic respiratory faliure secondary to exacerbation of COPD: Recieved Oxygen supplementation as needed to keep saturation above 90(remained on 3L), TRC/nebs as needed, IV Solu-Medrol 40 mg Q12 later switched to by mouth prednisone, Azithromycin 250 mg daily to complete a five-day course. Patient has been on 3L of oxygen and desaturated to 88% upon ambulation , she was thus sent on home oxygen. Patient advised to f/u with PCP, publicity expert in 1 week, she was advised to quit smoking. CT chest chest showed evidence of incidental finding of thyroid nodule. TSH and free T4 normal, patient to follow-up with primary care physician upon discharge for further evaluation of the thyroid nodule. History of hypertension: Patient initially continued on home dose of metoprolol 100 mg daily but as per pulmonology recommendation dose reduced to 50 mg daily as strongly thought that is contributing towards her wheezing. She is to follow-up with milk drier upon discharge, provided with referral. Diet heart healthy. DVT prophylaxis: Lovenox Patient is full code Complications: none Allergies: Coded Allergies: No Known Allergies (09/02/16) Disposition Summary Disposition Principal Diagnosis: Acute hypoxic failure secondary to COPD exacerbation Additional Diagnosis: Hypertension Thyroid nodule Discharge Disposition: home or self care Discharge Instructions General Discharge Information Code Status: Full Code Patient's Diet: Heart healthy Patient's Activity: As tolerated Follow-Up Instructions/Appts: Please follow-up with primary care physician, publicity expert in 1 week Medications at Discharge Discharge Medications: Stop taking the following medications: Metoprolol Succ XL (Toprol Xl 100 MG) 100 MG TAB.ER.24H ORAL DAILY Continue taking these medications: Carisoprodol (Carisoprodol) 350 MG TABLET 1 Tablet ORAL TWICE DAILY Qty = 60 Comments: Last Taken: 08/13/15 Time: 5 AM Montelukast Sodium (Singulair) 10 MG TABLET 1 Tablet ORAL DAILY Comments: Last Taken: 08/13/15 Time: 10 AM Albuterol Sulfate/Ipratropiu (Duoneb) 3 MG/3 ML NEB 1 Vial Inhale Solution 4 TIMES A DAY Qty = 360 Comments: Last Taken: 08/13/15 Time: 8AM Albuterol Sulfate (Ventolin Hfa) 0.09 MG/Actuation GARCIA 2 PUFF Inhale through mouth Q6H as needed for WHEEZING Qty = 1 Comments: Last Taken: 08/13/15 Time: 8AM Fluticasone-Salmeterol (Advair 500-50 Diskus) 1 UNIT UNIT 1 Puff Inhale through mouth TWICE DAILY Comments: NOT TAKEN WHILE IN HOSPITAL Nicotine (Nicoderm Cq) 21 MG/24 HR TDM 21 Milligram On the skin DAILY Qty = 20 Comments: Last Taken: 08/13/15 Time: 10AM Oxycodone HCl (Oxycodone HCl) 30 MG TABLET 1 Tablet ORAL 4XDAILY Comments: PER PT Start taking the following new medications: Nicotine (Nicotine Patch) 14 MG/24 HOUR PATCH.TD24 1 PATCH On the skin DAILY Days = 7 No Refills Tiotropium [place] (Spiriva) 18 MCG CAP.W.DEV 1 Puff Inhale through mouth DAILY Days = 30 No Refills Prednisone (Prednisone) 10 MG TABLET 1 Tablet ORAL See Instructions Qty = 30 No Refills Instructions: On Take 09/03-09/05 take 4 tabs everyday 09/06-09/08 take 3 tabs everyday 09/09-09/11 take 2 tabs everyday 09/13-09/14 take 1 tab everyday then stop Comments: Last Taken: 09/04/16 Time: 10 am Azithromycin (Azithromycin) 250 MG TABLET 1 Tablet ORAL DAILY Qty = 2 No Refills Atorvastatin Calcium (Atorvastatin Calcium) 10 MG TABLET 1 Tablet ORAL DAILY Qty = 30 No Refills Aspirin (Ecotrin*) 81 MG TABLET.DR 1 Tablet ORAL DAILY Qty = 30 No Refills Comments: Last Taken: 09/04/16 Time: 10 30 AM Losartan Potassium (Cozaar) 25 MG TABLET 0.5 Tablet ORAL DAILY Qty = 30 No Refills Instructions: Take half a tab daily. Metoprolol Succ XL (Toprol Xl) 50 MG TAB 1 Tablet ORAL DAILY Qty = 30 No Refills Comments: Last Taken: 09/04/16 Time: 10 am Fluticasone/Salmeterol (Advair 500-50 Diskus) 500 MCG-50 MCG/DOSE BLST.W.DEV 1 Puff Inhale through mouth TWICE DAILY Days = 14 No Refills Copies To: RADHA PIZANO,HENRY Hill; GERHARD PIZANO,BENIGNO Hill Attending MD Review Statement Documenting Attending: AMHET GRIER M.D Other Findings: I have reviewed the discharge summary
[2016-09-04 10:31] VITALS: BP 128/84
--- NOTE | 2016-09-04 13:18 | PN- Pulmonary ---
Subjective HPI/Critical Care Issues: Doing better Stable Still requires oxygen Cough seems to have improved Objective Current Medications: Little fatigued Current Medications Sig/Cosom Start time Last Medication Dose Route Stop Time Status Admin Acetaminophen 650 MG .STK-MED ONE 09/04 0223 DC PO 09/04 0224 Acetaminophen 650 MG Q6P PRN 08/31 1900 AC 09/04 PO 0227 Albuterol Sulfate 3 ML EVERY 4 HRS/AWAKE 09/02 1624 AC 09/04 INH 1113 Albuterol Sulfate 2 PUF Q6P PRN 09/02 1345 AC INH Aspirin 81 MG DAILY 09/01 1000 AC 09/04 PO 1031 Budesonide/ 2 PUF BID 09/02 1334 AC 09/04 Formoterol Fumarate INH 1029 Carisoprodol 350 MG BID 08/31 2200 AC 09/04 PO 1029 Enoxaparin Sodium 40 MG DAILY 09/01 1000 AC 09/04 SC 1031 Guaifenesin 600 MG Q12 08/31 2359 AC 09/04 PO 1031 Guaifenesin 10 ML Q6P PRN 08/31 2345 AC 09/02 PO 1855 Ipratropium [place] 2.5 ML EVERY 4 HRS/AWAKE 09/01 1600 AC 09/02 INH 1157 Melatonin 5 MG QPM 09/02 2200 AC 09/03 PO 2133 Metoprolol Succinate 50 MG DAILY 09/03 1000 AC 09/04 PO 1031 Montelukast Sodium 10 MG DAILY 09/01 1000 AC 09/04 PO 1031 Nicotine 14 MG DAILY 09/03 1000 AC 09/04 TOP 1031 Omeprazole 40 MG DAILY AC 09/02 1340 AC 09/04 PO 0610 Oxycodone HCl 30 MG 4 TIMES/DAY 08/31 2200 AC 09/04 PO 1030 Patient Medication 1 ED .STK-MED ONE 09/03 1347 DC Teaching ED 09/03 1348 Prednisone 40 MG DAILY 09/03 1000 AC 09/04 PO 1031 Tiotropium [place] 1 PUF DAILY 09/02 1335 AC 09/04 INH 1029 Vital Signs & I&O Last 24 Hrs of Vitals and I&O: Vital Signs Date Time Temp Pulse Resp B/P Pulse O2 O2 Flow FiO2 Ox Delivery Rate 09/04 1031 65 128/84 09/04 0804 94 Nasal 2.0L Cannula 09/04 08 93 Nasal 3.0L Cannula 09/04 0610 98.0 58 20 112/70 95 Nasal 3.0L Cannula 09/04 0000 Nasal 3.0L Cannula 09/03 2208 97.6 64 20 122/64 95 Nasal Cannula 09/03 2131 Nasal 2.0L Cannula 09/03 2002 Nasal 2.0L Cannula 09/03 1599 Nasal 3.0L Cannula 09/03 1514 98.3 67 20 140/82 95 Intake & Output 09/04 1600 09/04 0800 09/04 0000 Intake Total 300 510 Output Total Balance 300 510 Intake, IV 10 Intake, Oral 300 500 Impression/Plan Impression/Plan Impression/Plan: CT CHEST IMPRESSION: 1. No focal pneumonia. 2. Airways disease. 3. Linear bandlike opacities at both lung bases with the appearance of subsegmental/platelike atelectasis. 4. A tiny hiatal hernia. 5. Thyroid nodule. Evaluate with thyroid ultrasound. Physical Exam General Appearance Alert, Oriented X3, Cooperative, No Acute Distress Cardiovascular Regular Rate, Normal S1, Normal S2, No Murmurs Lungs b/lateral wheeze in all 3 lung zones Abdomen Normal Bowel Sounds, Soft, No Tenderness Extremities No Clubbing, No Cyanosis, No Edema IMPRESSION This is a 56-year-old lady with morbid obesity, diabetes, hypertension, significant tobacco use, recurrent bronchitis, history suggestive of rheumatoid, chronic low back pain, signs and symptoms suggestive of obstructive sleep apnea, small thyroid nodule, chronic pain syndrome, now comes in with * Improving and resolving Acute COPD exacerbation with bronchitis improving * Improving 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 * HTN * Mild hypoxemia due to significant COPD * Small hiatal hernia with recurrent GERD * Significant nicotine dependence * Small thyroid nodule * Morbid obesity with signs and symptoms suggestive of obstructive sleep apnea * High risk for lung cancer needs screening CT scan starting next year * Chronic pain syndrome RECOMMENDATION Continue current nebulizer therapy Spiriva 1 puff once a day and Symbicort 162 puffs twice a day Continue montelukast Nebulizer to albuterol only and change it to 4 times a day when necessary Prednisone 40 mg and wean 6 days Outpatient sleep study Omeprazole 40 mg daily for one month Wean oxygen down, if not patient can go home on oxygen Ok to dc soon Patient to follow-up with me next week
[2016-09-04] MEDS ORDERED: NICOTINE PATCH1 EAC2 TOP (13:23)
[2016-09-04] MEDS ORDERED: SPIRIVA18 MCG INH (13:32)
[2016-09-04] MEDS ORDERED: ADVAIR 500-501 EACH INH (13:37)
== END 2016-09-04 14:00 | DRG 190 ==
LOC: ERH 15:32 → ERHI 17:03 → 2NA 17:03 → ENPENDDIS 17:03 → DELPENDDIS 17:03 → 2NA 17:03 → ERHI 09-01 07:53 → 2NA 09-01 23:09
PROVIDERS: Internal Medicine; Physician Assistant; ADMIT Internal Medicine
DX: J44.1 Chronic obstructive pulmonary disease with (acute) exacerbation (principal); J96.01 Acute respiratory failure with hypoxia; Z68.41 Body mass index [BMI] 40.0-44.9, adult; I10 Essential (primary) hypertension; E66.01 Morbid (severe) obesity due to excess calories; M06.9 Rheumatoid arthritis, unspecified; F17.210 Nicotine dependence, cigarettes, uncomplicated; K21.9 Gastro-esophageal reflux disease without esophagitis; K44.9 Diaphragmatic hernia without obstruction or gangrene; E04.1 Nontoxic single thyroid nodule
CPT/HCPCS: 2NASP; ERO; 81001; 82436; 87040; 87804; 87804-59; 93005; 93010; 96365; 96375; J0456; J1650; J2920; J2930; J3490; J7040; J7508